=== PATIENT | male | born 1975 | race Hispanic/Latino ===

== ENCOUNTER 2022-05-24 09:46 | Emergency (ER) | payer SELFPAY ==
[2022-05-24 10:34] LABS: Urine Blood Trace-intact (Negative); Urine Glucose Negative (Negative); Urine Protein Negative (Negative)
[2022-05-24 10:53] LABS: Barbiturates NEGATIVE (NEGATIVE); Benzodiazepines NEGATIVE (NEGATIVE); Cocaine NEGATIVE (NEGATIVE); METHAMPHETAM POSITIVE (NEGATIVE); Methadone NEGATIVE (NEGATIVE); Opiates NEGATIVE (NEGATIVE); Phencyclidine NEGATIVE (NEGATIVE); THC Cannibis NEGATIVE (NEGATIVE)
[2022-05-24 12:23] LABS: Absolute Lymphocytes (CBC) 1.2 K/uL (0.7-4.9); Lymphocytes % 20.3 % (15.3-44.8); MCV 94.5 fL (80-100); MPV 8.3 fL (7.6-11.3); RBC Red Blood Cell Count 4.45 M/uL (4.33-5.43)
[2022-05-24 12:31] LABS: Protime INR 1.17
[2022-05-24 12:50] LABS: ALT/SGPT 29 U/L (16-61); AST/SGOT 17 U/L (15-37); Albumin 3.5 g/dL (3.4-5.0); Alkaline Phosphatase 125 U/L (45-117); BUN Blood Urea Nitrogen 21 mg/dL (7-18); Bicarbonate 26 mmol/L (21-32); Bilirubin Total 0.3 mg/dL (0.2-1.0); Glomerular Filtration Rate 83 ml/min (=/>90); Glucose Level 103 mg/dL (74-106); Potassium 4.1 mmol/L (3.5-5.1); Protein, Total 6.8 g/dL (6.4-8.2); Sodium Level 137 mmol/L (136-145)
[2022-05-24 12:51] LABS: Bilirubin Direct < 0.1 mg/dL (0-0.2)
[2022-05-24 13:26] LABS: SARS-CoV-2 Antigen Rapid Res Negative (Negative)
[2022-05-24] MEDS ORDERED: predniSONE 20 MG TAB ONE (15:52)
[2022-05-25] MEDS ORDERED: ACETAMINOPHEN 500 MG TAB ONE (03:29)
--- NOTE | 2022-05-25 16:24 | EKG ---
Test Date: 2022-05-24 Test Time: 10:36:26 [employer]: [employer] MEASUREMENT RESULTS: Intervals: Rate: 81 WI: 158 QRSD: 86 QT: 354 QTc: 411 [place]: P: 52 WI: 158 QRS: 84 T: 59 INTERPRETIVE STATEMENTS: Normal sinus rhythm Normal ECG No previous ECG available for comparison Electronically Signed On 05-25-22 16:20:17 [employer] by Hugo Payton
[2022-05-26 17:23] VITALS: O2SAT 100
[2022-05-26 17:26] VITALS: BP 116/79; TEMP 97.6
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
== END 2022-05-26 15:27 ==
LOC: ER 09:46
DX: R45.851 Suicidal ideations (principal); Z59.00 Homelessness unspecified; Z56.0 Unemployment, unspecified; Z59.1 Inadequate housing; Z20.822 Contact with and (suspected) exposure to COVID-19
CPT/HCPCS: 36415; 80048; 80076; 80307; 81003; 85025; 85610; 85730; 87811; 93005; 99285; G0480; J7512

== ENCOUNTER 2022-11-13 04:12 | Emergency (ER) | payer SELFPAY ==
--- OUTSIDE RECORDS SUMMARY | 2022-11-13 04:17 | XMS REPORT | Continuity of Care Document ---
:1975 Author Organization [facility] t Address [address] [place] [address] [place] [id number] Care Team Providers Name Role Phone [facility], [place] Dept Of Primary Care Physician [phone] Bhupinder Palm Attending Clinician Franki Melvin RN, Melisa Lawrence Attending Clinician Unavailable Winnie Gonzalez LVN Attending Clinician Unavailable Amber Sandoval MA Attending Clinician Unavailable Melisa Key RN Attending Clinician Unavailable BHUPINDER ARIZMENDI Attending Clinician Unavailable Sabrina Olivarez MA Attending Clinician Unavailable Celso Stearns MA Attending Clinician Unavailable SASHA RAMOS Attending Clinician Unavailable KRYSTA HOWELL Attending Clinician Unavailable YULISA INTERIANO Attending Clinician Unavailable [facility] Attending Clinician Unavailable Riddhi Rabago MD Attending Clinician RIDDHI RABAGO Attending Clinician Unavailable Payers Payer Name Policy Type Policy Number Effective Date Expiration Date S ource Problems Condition Condition Condition Status Onset Resolution Last Treating Co mments Source Name Details Category Date Date Treatment Clinician Date Obesity Obesity Disease Active Univers (BMI (BMI 8-11 ity of 30-39.9) 30-39.9) 00:00: [place] 00 Medical Branch Allergies, Adverse Reactions, Alerts Allergy Allergy Status Severity Reaction(s) Onset Inactive Treating Comm ents Source Name Type Date Date Clinician Penicill Propensi Active Other - See U nivers ins ty to comments 1-19 ity of adverse 00:00: [place] reaction 00 Medical s Branch PENICILL Drug Active Other-Cmnt Univ ers INS Class 1-19 ity of 00:00: [place] 00 Medical Branch NO KNOWN Drug Active Univers ALLERGIE Class ity of S [facility] Social History Social Habit Start Date Stop Date Quantity Comments Source History of tobacco Cigarette Smoker University of use [facility] Gender identity Universit y of [facility] Sexual orientation Univer sity [facility] Exposure to 2022-04-24 2022-05-04 Not sure University SARS-CoV-2 (event) 00:00:00 11:45:00 [facility] Alcohol intake 2022-05-04 2022-05-04 Lifetime University of 00:00:00 00:00:00 non-drinker [facility] (finding) Branch Tobacco use and 2022-04-06 2022-04-06 Smokeless Universit y of exposure 00:00:00 00:00:00 tobacco non-user [facility] dical [place] History of Social 2022-04-06 2022-04-06 Univers ity of function 00:00:00 00:00:00 [facility] Sex [birth year] At [birth year] Universit y of 00:00:00 00:00:00 [facility] Smoking Status Start Date Stop Date Source Tobacco smoking consumption Univ ersity of [facility] unknown Branch Smokes tobacco daily 2022-04-06 00:00:00 Univers ity [facility] Medications Ordered Filled Start Stop Current Ordering Indication Dosage Frequency Signature Comments Components Source Medication Medication Date Date Medication? Clinician (SIG) Name Name FRANCINE Yes [id number] 1 po once U nivers [id number] 7-27 daily with it y of -10 mg Tab 00:00: foood [place] [facility] lamiVUDine 2022- No 300mg Take 300 U nivers 300 mg 2-16 02-16 mg by ity of tablet 12:05: 00:00 mouth in [place] 01 :00 the Medical morning. Branch lamiVUDine 2022- No 300mg Take 300 U nivers 300 mg 2-16 02-16 mg by ity of tablet 12:05: 00:00 mouth in [place] 01 :00 the Medical morning. Branch lamiVUDine 2022- No 300mg Take 300 U nivers 300 mg 2-16 02-16 mg by ity of tablet 12:05: 00:00 mouth in [place] 01 :00 the Medical morning. Branch lamiVUDine 2023-0 2023- No 300mg Take 300 U nivers 300 mg 2-16 02-16 mg by ity of tablet 12:05: 00:00 mouth in [place] 01 :00 the Medical morning. Branch darunavir 2023-0 2023- No 800mg Take 800 Un eyal ethanolate 2-16 02-16 mg by ity of (PREZISTA) 12:04: 00:00 mouth in [place] 800 mg 55 :00 the Medical tablet morning. Branch riTONAvir 2023-0 2023- No 100mg Take 100 Un eyal 100 mg 2-16 02-16 mg by ity of tablet 12:04: 00:00 mouth in [place] 55 :00 the Medical morning. Branch tenofovir 2023-0 2023- No 300mg Take 300 Un eyal 300 mg 2-16 02-16 mg by ity of tablet 12:04: 00:00 mouth in [place] 55 :00 the Medical morning. Branch darunavir 2023-0 2023- No 800mg Take 800 Un eyal ethanolate 2-16 02-16 mg by ity of (PREZISTA) 12:04: 00:00 mouth in [place] 800 mg 55 :00 the Medical tablet morning. Branch riTONAvir 2023-0 2023- No 100mg Take 100 Un eyal 100 mg 2-16 02-16 mg by ity of tablet 12:04: 00:00 mouth in [place] 55 :00 the Medical morning. Branch tenofovir 2023-0 2023- No 300mg Take 300 Un eyal 300 mg 2-16 02-16 mg by ity of tablet 12:04: 00:00 mouth in [place] 55 :00 the Medical morning. Branch darunavir 2023-0 2023- No 800mg Take 800 Un eyal ethanolate 2-16 02-16 mg by ity of (PREZISTA) 12:04: 00:00 mouth in [place] 800 mg 55 :00 the Medical tablet morning. Branch riTONAvir 2023-0 2023- No 100mg Take 100 Un eyal 100 mg 2-16 02-16 mg by ity of tablet 12:04: 00:00 mouth in [place] 55 :00 the Medical morning. Branch tenofovir 2023-0 2023- No 300mg Take 300 Un eyal 300 mg 2-16 02-16 mg by ity of tablet 12:04: 00:00 mouth in [place] 55 :00 the Medical morning. Branch darunavir 2023-0 2023- No 800mg Take 800 Un eyal ethanolate 2-16 02-16 mg by ity of (PREZISTA) 12:04: 00:00 mouth [place] 800 mg 55 :00 the Medical tablet morning. Branch riTONAvir 2023-0 2023- No 100mg Take 100 Un eyal 100 mg 2-16 02-16 mg by ity of tablet 12:04: 00:00 mouth in [place] 55 :00 the Medical morning. Branch tenofovir 2023-0 2023- No 300mg Take 300 Un eyal 300 mg 2-16 02-16 mg by ity of tablet 12:04: 00:00 mouth in [place] 55 :00 the Medical morning. Branch darunavir 2023-0 Yes 800mg Take 800 Uni vers ethanolate 1-19 mg by ity of (PREZISTA) 09:40: mouth in [facility] 800 mg 29 the Medical tablet morning. Branch risperiDONE 3-0 Yes 1mg Take 1 mg U nivers (RISPERDAL) 1-19 by mouth ity of 1 mg tablet 09:40: in the [place] [address] morning Medical and 1 mg Branch in the evening. riTONAvir 3-0 Yes 100mg Take 100 Uni vers 100 mg 1-19 mg by ity of tablet 09:40: mouth in [place] [address] the Medical morning. Branch tenofovir 2023-0 Yes 300mg Take 300 Uni vers 300 mg 1-19 mg by ity of tablet 09:40: mouth in [place] [address] the Medical morning. Branch FLUoxetine 2023-0 Yes 20mg Take 20 mg U nivers 20 mg 1-19 by mouth ity of tablet 09:40: in the [place] [address] morning. Medical Branch ibuprofen 2023-0 Yes 600mg Take 600 Uni vers 600 mg 1-19 mg by ity of tablet 09:40: mouth [place] [address] every 6 Medical (six) Branch hours as needed. lamiVUDine 2023-0 Yes 300mg Take 300 Un eyal 300 mg 1-19 mg by ity of tablet 09:40: mouth in [place] [address] the Medical morning. Branch darunavir 2023-0 Yes 800mg Take 800 Uni vers ethanolate 1-19 mg by ity of (PREZISTA) 09:40: mouth in [facility] as 800 mg 29 the Medical tablet morning. Branch risperiDONE 2023-0 Yes 1mg Take 1 mg U nivers (RISPERDAL) 1-19 by mouth ity of 1 mg tablet 09:40: in the [place] [address] morning Medical and 1 mg Branch in the evening. riTONAvir 2023-0 Yes 100mg Take 100 Uni vers 100 mg 1-19 mg by ity of tablet 09:40: mouth in [place] [address] the Medical morning. Branch tenofovir 2023-0 Yes 300mg Take 300 Uni vers 300 mg 1-19 mg by ity of tablet 09:40: mouth in [place] [address] the Medical morning. Branch FLUoxetine 2023-0 Yes 20mg Take 20 mg U nivers 20 mg 1-19 by mouth ity of tablet 09:40: in the [place] [address] morning. Medical Branch ibuprofen 2023-0 Yes 600mg Take 600 Uni vers 600 mg 1-19 mg by ity of tablet 09:40: mouth [place] [address] every 6 Medical (six) Branch hours as needed. lamiVUDine 2023-0 Yes 300mg Take 300 Un eyal 300 mg 1-19 mg by ity of tablet 09:40: mouth in [place] [address] the Medical morning. Branch darunavir 2023-0 Yes 800mg Take 800 Uni vers ethanolate 1-19 mg by ity of (PREZISTA) 09:40: mouth in [facility] as 800 mg 29 the Medical tablet morning. Branch risperiDONE 2023-0 Yes 1mg Take 1 mg U nivers (RISPERDAL) 1-19 by mouth ity of 1 mg tablet 09:40: in the [place] [address] morning Medical and 1 mg Branch in the evening. riTONAvir 2023-0 Yes 100mg Take 100 Uni vers 100 mg 1-19 mg by ity of tablet 09:40: mouth in [place] [address] the Medical morning. Branch tenofovir 2023-0 Yes 300mg Take 300 Uni vers 300 mg 1-19 mg by ity of tablet 09:40: mouth in [place] [address] the Medical morning. Branch FLUoxetine 2023-0 Yes 20mg Take 20 mg U nivers 20 mg 1-19 by mouth ity of tablet 09:40: in the [place] [address] morning. Medical Branch ibuprofen 2023-0 Yes 600mg Take 600 Uni vers 600 mg 1-19 mg by ity of tablet 09:40: mouth [place] [address] every 6 Medical (six) Branch hours as needed. lamiVUDine 2023-0 Yes 300mg Take 300 Un eyal 300 mg 1-19 mg by ity of tablet 09:40: mouth in [place] [address] the Medical morning. Branch darunavir 2023-0 Yes 800mg Take 800 Uni vers ethanolate 1-19 mg by ity of (PREZISTA) 09:40: mouth in [facility] as 800 mg 29 the Medical tablet morning. Branch risperiDONE 2023-0 Yes 1mg Take 1 mg U nivers (RISPERDAL) 1-19 by mouth ity of 1 mg tablet 09:40: in the [place] [address] morning Medical and 1 mg Branch in the evening. riTONAvir 2023-0 Yes 100mg Take 100 Uni vers 100 mg 1-19 mg by ity of tablet 09:40: mouth in [place] [address] the Medical morning. Branch tenofovir 2023-0 Yes 300mg Take 300 Uni vers 300 mg 1-19 mg by ity of tablet 09:40: mouth in [place] [address] the Medical morning. Branch FLUoxetine 2023-0 Yes 20mg Take 20 mg U nivers 20 mg 1-19 by mouth ity of tablet 09:40: in the [place] [address] morning. Medical Branch ibuprofen 2023-0 Yes 600mg Take 600 Uni vers 600 mg 1-19 mg by ity of tablet 09:40: mouth [place] [address] every 6 Medical (six) Branch hours as needed. lamiVUDine 2023-0 Yes 300mg Take 300 Un yeal 300 mg 1-19 mg by ity of tablet 09:40: mouth in [place] [address] the Medical morning. Branch darunavir 2023-0 Yes 800mg Take 800 Uni vers ethanolate 1-19 mg by ity of (PREZISTA) 09:40: mouth in [facility] as 800 mg 29 the Medical tablet morning. Branch risperiDONE 2023-0 Yes 1mg Take 1 mg U nivers (RISPERDAL) 1-19 by mouth ity of 1 mg tablet 09:40: in the [place] [address] morning Medical and 1 mg Branch in the evening. riTONAvir 2023-0 Yes 100mg Take 100 Uni vers 100 mg 1-19 mg by ity of tablet 09:40: mouth in [place] [address] the Medical morning. Branch tenofovir 2023-0 Yes 300mg Take 300 Uni vers 300 mg 1-19 mg by ity of tablet 09:40: mouth in [place] [address] the Medical morning. Branch FLUoxetine 2023-0 Yes 20mg Take 20 mg U nivers 20 mg 1-19 by mouth ity of tablet 09:40: in the [place] [address] morning. Medical Branch ibuprofen 2023-0 Yes 600mg Take 600 Uni vers 600 mg 1-19 mg by ity of tablet 09:40: mouth [place] [address] every 6 Medical (six) Branch hours as needed. lamiVUDine 2023-0 Yes 300mg Take 300 Un eyal 300 mg 1-19 mg by ity of tablet 09:40: mouth in [place] [address] the Medical morning. Branch darunavir 2023-0 Yes 800mg Take 800 Uni vers ethanolate 1-19 mg by ity of (PREZISTA) 09:40: mouth in [facility] as 800 mg 29 the Medical tablet morning. Branch risperiDONE 2023-0 Yes 1mg Take 1 mg U nivers (RISPERDAL) 1-19 by mouth ity of 1 mg tablet 09:40: in the [place] [address] morning Medical and 1 mg Branch in the evening. riTONAvir 2023-0 Yes 100mg Take 100 Uni vers 100 mg 1-19 mg by ity of tablet 09:40: mouth in [place] [address] the Medical morning. Branch tenofovir 2023-0 Yes 300mg Take 300 Uni vers 300 mg 1-19 mg by ity of tablet 09:40: mouth in [place] [address] the Medical morning. Branch FLUoxetine 2023-0 Yes 20mg Take 20 mg U nivers 20 mg 1-19 by mouth ity of tablet 09:40: in the [place] [address] morning. Medical Branch ibuprofen 2023-0 Yes 600mg Take 600 Uni vers 600 mg 1-19 mg by ity of tablet 09:40: mouth [place] [address] every 6 Medical (six) Branch hours as needed. lamiVUDine 2023-0 Yes 300mg Take 300 Un eyal 300 mg 1-19 mg by ity of tablet 09:40: mouth in [place] [address] the Medical morning. Branch darunavir 2023-0 Yes 800mg Take 800 Uni vers ethanolate 1-19 mg by ity of (PREZISTA) 09:40: mouth in [facility] as 800 mg 29 the Medical tablet morning. Branch risperiDONE 2023-0 Yes 1mg Take 1 mg U nivers (RISPERDAL) 1-19 by mouth ity of 1 mg tablet 09:40: in the [place] [address] morning Medical and 1 mg Branch in the evening. riTONAvir 2023-0 Yes 100mg Take 100 Uni vers 100 mg 1-19 mg by ity of tablet 09:40: mouth in [place] [address] the Medical morning. Branch tenofovir 2023-0 Yes 300mg Take 300 Uni vers 300 mg 1-19 mg by ity of tablet 09:40: mouth in [place] [address] the Medical morning. Branch FLUoxetine 2023-0 Yes 20mg Take 20 mg U nivers 20 mg 1-19 by mouth ity of tablet 09:40: in the [place] [address] morning. Medical Branch ibuprofen 2023-0 Yes 600mg Take 600 Uni vers 600 mg 1-19 mg by ity of tablet 09:40: mouth [place] [address] every 6 Medical (six) Branch hours as needed. lamiVUDine 2023-0 Yes 300mg Take 300 Un eyal 300 mg 1-19 mg by ity of tablet 09:40: mouth in [place] [address] the Medical morning. Branch darunavir 2023-0 Yes 800mg Take 800 Uni vers ethanolate 1-19 mg by ity of (PREZISTA) 09:40: mouth in [facility] 800 mg 29 the Medical tablet morning. Branch risperiDONE 2023-0 Yes 1mg Take 1 mg U nivers (RISPERDAL) 1-19 by mouth ity of 1 mg tablet 09:40: in the [place] [address] morning Medical and 1 mg Branch in the evening. riTONAvir 2023-0 Yes 100mg Take 100 Uni vers 100 mg 1-19 mg by ity of tablet 09:40: mouth in [place] [address] the Medical morning. Branch tenofovir 2023-0 Yes 300mg Take 300 Uni vers 300 mg 1-19 mg by ity of tablet 09:40: mouth in [place] [address] the Medical morning. Branch FLUoxetine 2023-0 Yes 20mg Take 20 mg U nivers 20 mg 1-19 by mouth ity of tablet 09:40: in the [place] [address] morning. Medical Branch ibuprofen 2023-0 Yes 600mg Take 600 Uni vers 600 mg 1-19 mg by ity of tablet 09:40: mouth [place] [address] every 6 Medical (six) Branch hours as needed. lamiVUDine 2023-0 Yes 300mg Take 300 Un eyal 300 mg 1-19 mg by ity of tablet 09:40: mouth in [place] [address] the Medical morning. Branch darunavir 2023-0 Yes 800mg Take 800 Uni vers ethanolate 1-19 mg by ity of (PREZISTA) 09:40: mouth in [facility] as 800 mg 29 the Medical tablet morning. Branch risperiDONE 2023-0 Yes 1mg Take 1 mg U nivers (RISPERDAL) 1-19 by mouth ity of 1 mg tablet 09:40: in the [place] [address] morning Medical and 1 mg Branch in the evening. riTONAvir 2023-0 Yes 100mg Take 100 Uni vers 100 mg 1-19 mg by ity of tablet 09:40: mouth in [place] [address] the Medical morning. Branch tenofovir 2023-0 Yes 300mg Take 300 Uni vers 300 mg 1-19 mg by ity of tablet 09:40: mouth in [place] [address] the Medical morning. Branch FLUoxetine 2023-0 Yes 20mg Take 20 mg U nivers 20 mg 1-19 by mouth ity of tablet 09:40: in the [place] [address] morning. Medical Branch ibuprofen 2023-0 Yes 600mg Take 600 Uni vers 600 mg 1-19 mg by ity of tablet 09:40: mouth [place] [address] every 6 Medical (six) Branch hours as needed. lamiVUDine 2023-0 Yes 300mg Take 300 Un eyal 300 mg 1-19 mg by ity of tablet 09:40: mouth in [place] [address] the Medical morning. Branch darunavir 2023-0 Yes 800mg Take 800 Uni vers ethanolate 1-19 mg by ity of (PREZISTA) 09:40: mouth in [facility] as 800 mg 29 the Medical tablet morning. Branch risperiDONE 2023-0 Yes 1mg Take 1 mg U nivers (RISPERDAL) 1-19 by mouth ity of 1 mg tablet 09:40: in the [place] [address] morning Medical and 1 mg Branch in the evening. riTONAvir 2023-0 Yes 100mg Take 100 Uni vers 100 mg 1-19 mg by ity of tablet 09:40: mouth in [place] [address] the Medical morning. Branch tenofovir 2023-0 Yes 300mg Take 300 Uni vers 300 mg 1-19 mg by ity of tablet 09:40: mouth in [place] [address] the Medical morning. Branch FLUoxetine 2023-0 Yes 20mg Take 20 mg U nivers 20 mg 1-19 by mouth ity of tablet 09:40: in the [place] [address] morning. Medical Branch ibuprofen 2023-0 Yes 600mg Take 600 Uni vers 600 mg 1-19 mg by ity of tablet 09:40: mouth [place] [address] every 6 Medical (six) Branch hours as needed. risperiDONE 2023-0 Yes 1mg Take 1 mg U nivers (RISPERDAL) 1-19 by mouth ity of 1 mg tablet 09:40: in the [facility] morning Medical and 1 mg Branch in the evening. FLUoxetine 2023-0 Yes 20mg Take 20 mg U nivers 20 mg 1-19 by mouth ity of tablet 09:40: in the [place] [address] morning. Medical Branch ibuprofen 2023-0 Yes 600mg Take 600 Uni vers 600 mg 1-19 mg by ity of tablet 09:40: mouth [place] [address] every 6 Medical (six) Branch hours as needed. FLUoxetine 2023-0 Yes 20mg Take 20 mg U nivers 20 mg 1-19 by mouth ity of tablet 09:40: in the [place] [address] morning. Medical Branch ibuprofen 2023-0 Yes 600mg Take 600 Uni vers 600 mg 1-19 mg by ity of tablet 09:40: mouth [place] [address] every 6 Medical (six) Branch hours as needed. risperiDONE 2023-0 Yes 1mg Take 1 mg U nivers (RISPERDAL) 1-19 by mouth ity of 1 mg tablet 09:40: in the [facility] morning Medical and 1 mg Branch in the evening. lamiVUDine 2023-0 Yes 300mg Take 300 Un eyal 300 mg 1-19 mg by ity of tablet 09:40: mouth in [place] [address] the Medical morning. Branch FLUoxetine 2023-0 Yes 20mg Take 20 mg U nivers 20 mg 1-19 by mouth ity of tablet 09:40: in the [place] [address] morning. Medical Branch ibuprofen 2023-0 Yes 600mg Take 600 Uni vers 600 mg 1-19 mg by ity of tablet 09:40: mouth [place] [address] every 6 Medical (six) Branch hours as needed. risperiDONE 2023-0 Yes 1mg Take 1 mg U nivers (RISPERDAL) 1-19 by mouth ity of 1 mg tablet 09:40: in the [facility] morning Medical and 1 mg Branch in the evening. darunavir 2023-0 Yes 800mg Take 800 Uni vers ethanolate 1-19 mg by ity of (PREZISTA) 09:40: mouth in [place] as 800 mg 29 the Medical tablet morning. Branch FLUoxetine 2023-0 Yes 20mg Take 20 mg U nivers 20 mg 1-19 by mouth ity of tablet 09:40: in the [place] [address] morning. Medical Branch ibuprofen 2023-0 Yes 600mg Take 600 Uni vers 600 mg 1-19 mg by ity of tablet 09:40: mouth [place] [address] every 6 Medical (six) Branch hours as needed. risperiDONE 2023-0 Yes 1mg Take 1 mg U nivers (RISPERDAL) 1-19 by mouth ity of 1 mg tablet 09:40: in the [facility] morning Medical and 1 mg Branch in the evening. FLUoxetine 2023-0 Yes 20mg Take 20 mg U nivers 20 mg 1-19 by mouth ity of tablet 09:40: in the [place] [address] morning. Medical Branch ibuprofen 2023-0 Yes 600mg Take 600 Uni vers 600 mg 1-19 mg by ity of tablet 09:40: mouth [place] [address] every 6 Medical (six) Branch hours as needed. risperiDONE 2023-0 Yes 1mg Take 1 mg U nivers (RISPERDAL) 1-19 by mouth ity of 1 mg tablet 09:40: in the [facility] morning Medical and 1 mg Branch in the evening. risperiDONE 2023-0 Yes 1mg Take 1 mg U nivers (RISPERDAL) 1-19 by mouth ity of 1 mg tablet 09:40: in the [place] [address] morning Medical and 1 mg Branch in the evening. FLUoxetine 2023-0 Yes 20mg Take 20 mg U nivers 20 mg 1-19 by mouth ity of tablet 09:40: in the [place] [address] morning. Medical Branch ibuprofen 2023-0 Yes 600mg Take 600 Uni vers 600 mg 1-19 mg by ity of tablet 09:40: mouth [place] [address] every 6 Medical (six) Branch hours as needed. risperiDONE 2023-0 Yes 1mg Take 1 mg U nivers (RISPERDAL) 1-19 by mouth ity of 1 mg tablet 09:40: in the [place] [address] morning Medical and 1 mg Branch in the evening. riTONAvir 2023-0 Yes 100mg Take 100 Uni vers 100 mg 1-19 mg by ity of tablet 09:40: mouth in [place] [address] the Medical morning. Branch FLUoxetine 2023-0 Yes 20mg Take 20 mg U nivers 20 mg 1-19 by mouth ity of tablet 09:40: in the [place] [address] morning. Medical Branch ibuprofen 2023-0 Yes 600mg Take 600 Uni vers 600 mg 1-19 mg by ity of tablet 09:40: mouth [place] [address] every 6 Medical (six) Branch hours as needed. risperiDONE 2023-0 Yes 1mg Take 1 mg U nivers (RISPERDAL) 1-19 by mouth ity of 1 mg tablet 09:40: in the [place] [address] morning Medical and 1 mg Branch in the evening. FLUoxetine 2023-0 Yes 20mg Take 20 mg U nivers 20 mg 1-19 by mouth ity of tablet 09:40: in the [place] [address] morning. Medical Branch ibuprofen 2023-0 Yes 600mg Take 600 Uni vers 600 mg 1-19 mg by ity of tablet 09:40: mouth [place] [address] every 6 Medical (six) Branch hours as needed. risperiDONE 2023-0 Yes 1mg Take 1 mg U nivers (RISPERDAL) 1-19 by mouth ity of 1 mg tablet 09:40: in the [place] [address] morning Medical and 1 mg Branch in the evening. tenofovir 2023-0 Yes 300mg Take 300 Uni vers 300 mg 1-19 mg by ity of tablet 09:40: mouth in [place] [address] the Medical morning. Branch FLUoxetine 2023-0 Yes 20mg Take 20 mg U nivers 20 mg 1-19 by mouth ity of tablet 09:40: in the [place] [address] morning. Medical Branch ibuprofen 2023-0 Yes 600mg Take 600 Uni vers 600 mg 1-19 mg by ity of tablet 09:40: mouth [place] [address] every 6 Medical (six) Branch hours as needed. risperiDONE 2023-0 Yes 1mg Take 1 mg U nivers (RISPERDAL) 1-19 by mouth ity of 1 mg tablet 09:40: in the [place] [address] morning Medical and 1 mg Branch in the evening. FLUoxetine 2023-0 Yes 20mg Take 20 mg U nivers 20 mg 1-19 by mouth ity of tablet 09:40: in the [place] [address] morning. Medical Branch ibuprofen 2023-0 Yes 600mg Take 600 Uni vers 600 mg 1-19 mg by ity of tablet 09:40: mouth [place] [address] every 6 Medical (six) Branch hours as needed. risperiDONE 2023-0 Yes 1mg Take 1 mg U nivers (RISPERDAL) 1-19 by mouth ity of 1 mg tablet 09:40: in the [facility] morning Medical and 1 mg Branch in the evening. FLUoxetine 2023-0 Yes 20mg Take 20 mg U nivers 20 mg 1-19 by mouth ity of tablet 09:40: in the [place] [address] morning. Medical Branch ibuprofen 2023-0 Yes 600mg Take 600 Uni vers 600 mg 1-19 mg by ity of tablet 09:40: mouth [place] [address] every 6 Medical (six) Branch hours as needed. risperiDONE 2023-0 Yes 1mg Take 1 mg U nivers (RISPERDAL) 1-19 by mouth ity of 1 mg tablet 09:40: in the [facility] morning Medical and 1 mg Branch in the evening. FLUoxetine 2023-0 Yes 20mg Take 20 mg U nivers 20 mg 1-19 by mouth ity of tablet 09:40: in the [place] [address] morning. Medical Branch ibuprofen 2023-0 Yes 600mg Take 600 Uni vers 600 mg 1-19 mg by ity of tablet 09:40: mouth [place] [address] every 6 Medical (six) Branch hours as needed. risperiDONE 2023-0 Yes 1mg Take 1 mg U nivers (RISPERDAL) 1-19 by mouth ity of 1 mg tablet 09:40: in the [facility] morning Medical and 1 mg Branch in the evening. FLUoxetine 2023-0 Yes 20mg Take 20 mg U nivers 20 mg 1-19 by mouth ity of tablet 09:40: in the [place] [address] morning. Medical Branch ibuprofen 2023-0 Yes 600mg Take 600 Uni vers 600 mg 1-19 mg by ity of tablet 09:40: mouth [place] [address] every 6 Medical (six) Branch hours as needed. risperiDONE 2023-0 Yes 1mg Take 1 mg U nivers (RISPERDAL) 1-19 by mouth ity of 1 mg tablet 09:40: in the [facility] morning Medical and 1 mg Branch in the evening. FLUoxetine 2023-0 Yes 20mg Take 20 mg U nivers 20 mg 1-19 by mouth ity of tablet 09:40: in the [place] [address] morning. Medical Branch ibuprofen 2023-0 Yes 600mg Take 600 Uni vers 600 mg 1-19 mg by ity of tablet 09:40: mouth [place] [place] [address] every 6 Medical (six) Branch hours as needed. risperiDONE 2023-0 Yes 1mg Take 1 mg U nivers (RISPERDAL) 1-19 by mouth ity of 1 mg tablet 09:40: in the [place] [address] morning Medical and 1 mg Branch in the evening. FLUoxetine 2023-0 Yes 20mg Take 20 mg U nivers 20 mg 1-19 by mouth ity of tablet 09:40: in the [place] [address] morning. Medical Branch ibuprofen 2023-0 Yes 600mg Take 600 Uni vers 600 mg 1-19 mg by ity of tablet 09:40: mouth [place] [address] every 6 Medical (six) Branch hours as needed. risperiDONE 2023-0 Yes 1mg Take 1 mg U nivers (RISPERDAL) 1-19 by mouth ity of 1 mg tablet 09:40: in the [place] [address] morning Medical and 1 mg Branch in the evening. FLUoxetine 2023-0 Yes 20mg Take 20 mg U nivers 20 mg 1-19 by mouth ity of tablet 09:40: in the [place] [address] morning. Medical Branch FLUoxetine 2023-0 Yes 20mg Take 20 mg U nivers 20 mg 1-19 by mouth ity of tablet 09:40: in the [place] [address] morning. Medical Branch ibuprofen 2023-0 Yes 600mg Take 600 Uni vers 600 mg 1-19 mg by ity of tablet 09:40: mouth [place] [address] every 6 Medical (six) Branch hours as needed. risperiDONE 2023-0 Yes 1mg Take 1 mg U nivers (RISPERDAL) 1-19 by mouth ity of 1 mg tablet 09:40: in the [place] [address] morning Medical and 1 mg Branch in the evening. ibuprofen 2023-0 Yes 600mg Take 600 Uni vers 600 mg 1-19 mg by ity of tablet 09:40: mouth [place] [address] every 6 Medical (six) Branch hours as needed. FLUoxetine 2023-0 Yes 20mg Take 20 mg U nivers 20 mg 1-19 by mouth ity of tablet 09:40: in the [place] [address] morning. Medical Branch ibuprofen 2023-0 Yes 600mg Take 600 Uni vers 600 mg 1-19 mg by ity of tablet 09:40: mouth [place] [address] every 6 Medical (six) Branch hours as needed. risperiDONE 2023-0 Yes 1mg Take 1 mg U nivers (RISPERDAL) 1-19 by mouth ity of 1 mg tablet 09:40: in the [place] [address] morning Medical and 1 mg Branch in the evening. FLUoxetine 2023-0 Yes 20mg Take 20 mg U nivers 20 mg 1-19 by mouth ity of tablet 09:40: in the [place] [address] morning. Medical Branch ibuprofen 2023-0 Yes 600mg Take 600 Uni vers 600 mg 1-19 mg by ity of tablet 09:40: mouth [place] [address] every 6 Medical (six) Branch hours as needed. lamiVUDine 2023-0 Yes 300mg Take 300 Un eyal 300 mg 1-19 mg by ity of tablet 09:40: mouth in [place] [address] the Medical morning. Branch risperiDONE 2023-0 Yes 1mg Take 1 mg U nivers (RISPERDAL) 1-19 by mouth ity of 1 mg tablet 09:40: in the [place] [address] morning Medical and 1 mg Branch in the evening. FLUoxetine 2023-0 Yes 20mg Take 20 mg U nivers 20 mg 1-19 by mouth ity of tablet 09:40: in the [place] [address] morning. Medical Branch ibuprofen 2023-0 Yes 600mg Take 600 Uni vers 600 mg 1-19 mg by ity of tablet 09:40: mouth [place] [address] every 6 Medical (six) Branch hours as needed. risperiDONE 2023-0 Yes 1mg Take 1 mg U nivers (RISPERDAL) 1-19 by mouth ity of 1 mg tablet 09:40: in the [place] [address] morning Medical and 1 mg Branch in the evening. darunavir 2023-0 Yes 800mg Take 800 Uni vers ethanolate 1-19 mg by ity of (PREZISTA) 09:40: mouth in [facility] 800 mg 29 the Medical tablet morning. Branch FLUoxetine 2023-0 Yes 20mg Take 20 mg U nivers 20 mg 1-19 by mouth ity of tablet 09:40: in the [place] [address] morning. Medical Branch ibuprofen 2023-0 Yes 600mg Take 600 Uni vers 600 mg 1-19 mg by ity of tablet 09:40: mouth [place] [address] every 6 Medical (six) Branch hours as needed. risperiDONE 2023-0 Yes 1mg Take 1 mg U nivers (RISPERDAL) 1-19 by mouth ity of 1 mg tablet 09:40: in the [place] [address] morning Medical and 1 mg Branch in the evening. FLUoxetine 2023-0 Yes 20mg Take 20 mg U nivers 20 mg 1-19 by mouth ity of tablet 09:40: in the [place] [address] morning. Medical Branch risperiDONE 2023-0 Yes 1mg Take 1 mg U nivers (RISPERDAL) 1-19 by mouth ity of 1 mg tablet 09:40: in the [place] [address] morning Medical and 1 mg Branch in the evening. ibuprofen 2023-0 Yes 600mg Take 600 Uni vers 600 mg 1-19 mg by ity of tablet 09:40: mouth [place] [address] every 6 Medical (six) Branch hours as needed. risperiDONE 2023-0 Yes 1mg Take 1 mg U nivers (RISPERDAL) 1-19 by mouth ity of 1 mg tablet 09:40: in the [place] [address] morning Medical and 1 mg Branch in the evening. FLUoxetine 2023-0 Yes 20mg Take 20 mg U nivers 20 mg 1-19 by mouth ity of tablet 09:40: in the [place] [address] morning. Medical Branch ibuprofen 2023-0 Yes 600mg Take 600 Uni vers 600 mg 1-19 mg by ity of tablet 09:40: mouth [place] [address] every 6 Medical (six) Branch hours as needed. risperiDONE 2023-0 Yes 1mg Take 1 mg U nivers (RISPERDAL) 1-19 by mouth ity of 1 mg tablet 09:40: in the [place] [address] morning Medical and 1 mg Branch in the evening. riTONAvir 2023-0 Yes 100mg Take 100 Uni vers 100 mg 1-19 mg by ity of tablet 09:40: mouth in [place] [address] the Medical morning. Branch FLUoxetine 2023-0 Yes 20mg Take 20 mg U nivers 20 mg 1-19 by mouth ity of tablet 09:40: in the [place] [address] morning. Medical Branch ibuprofen 2023-0 Yes 600mg Take 600 Uni vers 600 mg 1-19 mg by ity of tablet 09:40: mouth [place] [address] every 6 Medical (six) Branch hours as needed. risperiDONE 2023-0 Yes 1mg Take 1 mg U nivers (RISPERDAL) 1-19 by mouth ity of 1 mg tablet 09:40: in the [place] [address] morning Medical and 1 mg Branch in the evening. tenofovir 2023-0 Yes 300mg Take 300 Uni vers 300 mg 1-19 mg by ity of tablet 09:40: mouth in [place] [address] the Medical morning. Branch FLUoxetine 2023-0 Yes 20mg Take 20 mg U nivers 20 mg 1-19 by mouth ity of tablet 09:40: in the [place] [address] morning. Medical Branch ibuprofen 2023-0 Yes 600mg Take 600 Uni vers 600 mg 1-19 mg by ity of tablet 09:40: mouth [place] [address] every 6 Medical (six) Branch hours as needed. risperiDONE 2023-0 Yes 1mg Take 1 mg U nivers (RISPERDAL) 1-19 by mouth ity of 1 mg tablet 09:40: in the [facility] morning Medical and 1 mg Branch in the evening. FLUoxetine 2023-0 Yes 20mg Take 20 mg U nivers 20 mg 1-19 by mouth ity of tablet 09:40: in the [place] [address] morning. Medical Branch ibuprofen 2023-0 Yes 600mg Take 600 Uni vers 600 mg 1-19 mg by ity of tablet 09:40: mouth [place] [address] every 6 Medical (six) Branch hours as needed. risperiDONE 2023-0 Yes 1mg Take 1 mg U nivers (RISPERDAL) 1-19 by mouth ity of 1 mg tablet 09:40: in the [facility] morning Medical and 1 mg Branch in the evening. FLUoxetine 2023-0 Yes 20mg Take 20 mg U nivers 20 mg 1-19 by mouth ity of tablet 09:40: in the [place] [address] morning. Medical Branch ibuprofen 2023-0 Yes 600mg Take 600 Uni vers 600 mg 1-19 mg by ity of tablet 09:40: mouth [place] [address] every 6 Medical (six) Branch hours as needed. risperiDONE 2023-0 Yes 1mg Take 1 mg U nivers (RISPERDAL) 1-19 by mouth ity of 1 mg tablet 09:40: in the [facility] morning Medical and 1 mg Branch in the evening. FLUoxetine 2023-0 Yes 20mg Take 20 mg U nivers 20 mg 1-19 by mouth ity of tablet 09:40: in the [place] [address] morning. Medical Branch ibuprofen 2023-0 Yes 600mg Take 600 Uni vers 600 mg 1-19 mg by ity of tablet 09:40: mouth [place] [address] every 6 Medical (six) Branch hours as needed. risperiDONE 2023-0 Yes 1mg Take 1 mg U nivers (RISPERDAL) 1-19 by mouth ity of 1 mg tablet 09:40: in the [place] [address] morning Medical and 1 mg Branch in the evening. FLUoxetine 2023-0 Yes 20mg Take 20 mg U nivers 20 mg 1-19 by mouth ity of tablet 09:40: in the [place] [address] morning. Medical Branch ibuprofen 2023-0 Yes 600mg Take 600 Uni vers 600 mg 1-19 mg by ity of tablet 09:40: mouth [place] [address] every 6 Medical (six) Branch hours as needed. risperiDONE 2023-0 Yes 1mg Take 1 mg U nivers (RISPERDAL) 1-19 by mouth ity of 1 mg tablet 09:40: in the [place] [address] morning Medical and 1 mg Branch in the evening. FLUoxetine 2023-0 Yes 20mg Take 20 mg U nivers 20 mg 1-19 by mouth ity of tablet 09:40: in the [place] [address] morning. Medical Branch ibuprofen 2023-0 Yes 600mg Take 600 Uni vers 600 mg 1-19 mg by ity of tablet 09:40: mouth [place] [address] every 6 Medical (six) Branch hours as needed. risperiDONE 2023-0 Yes 1mg Take 1 mg U nivers (RISPERDAL) 1-19 by mouth ity of 1 mg tablet 09:40: in the [place] [address] morning Medical and 1 mg Branch in the evening. FLUoxetine 2023-0 Yes 20mg Take 20 mg U nivers 20 mg 1-19 by mouth ity of tablet 09:40: in the [place] [address] morning. Medical Branch ibuprofen 2023-0 Yes 600mg Take 600 Uni vers 600 mg 1-19 mg by ity of tablet 09:40: mouth [place] [address] every 6 Medical (six) Branch hours as needed. risperiDONE 2023-0 Yes 1mg Take 1 mg U nivers (RISPERDAL) 1-19 by mouth ity of 1 mg tablet 09:40: in the [place] [address] morning Medical and 1 mg Branch in the evening. FLUoxetine 2023-0 Yes 20mg Take 20 mg U nivers 20 mg 1-19 by mouth ity of tablet 09:40: in the [place] [address] morning. Medical Branch ibuprofen 2023-0 Yes 600mg Take 600 Uni vers 600 mg 1-19 mg by ity of tablet 09:40: mouth [place] [address] every 6 Medical (six) Branch hours as needed. FLUoxetine 2023-0 Yes 20mg Take 20 mg U nivers 20 mg 1-19 by mouth ity of tablet 09:40: in the [place] [address] morning. Medical Branch risperiDONE 2023-0 Yes 1mg Take 1 mg U nivers (RISPERDAL) 1-19 by mouth ity of 1 mg tablet 09:40: in the [place] [address] morning Medical and 1 mg Branch in the evening. FLUoxetine 2023-0 Yes 20mg Take 20 mg U nivers 20 mg 1-19 by mouth ity of tablet 09:40: in the [place] [address] morning. Medical Branch ibuprofen 2023-0 Yes 600mg Take 600 Uni vers 600 mg 1-19 mg by ity of tablet 09:40: mouth [place] [address] every 6 Medical (six) Branch hours as needed. risperiDONE 2023-0 Yes 1mg Take 1 mg U nivers (RISPERDAL) 1-19 by mouth ity of 1 mg tablet 09:40: in the [place] [address] morning Medical and 1 mg Branch in the evening. ibuprofen 2023-0 Yes 600mg Take 600 Uni vers 600 mg 1-19 mg by ity of tablet 09:40: mouth [place] [address] every 6 Medical (six) Branch hours as needed. FLUoxetine 2023-0 Yes 20mg Take 20 mg U nivers 20 mg 1-19 by mouth ity of tablet 09:40: in the [place] [address] morning. Medical Branch ibuprofen 2023-0 Yes 600mg Take 600 Uni vers 600 mg 1-19 mg by ity of tablet 09:40: mouth [place] [address] every 6 Medical (six) Branch hours as needed. risperiDONE 2023-0 Yes 1mg Take 1 mg U nivers (RISPERDAL) 1-19 by mouth ity of 1 mg tablet 09:40: in the [place] [address] morning Medical and 1 mg Branch in the evening. FLUoxetine 2023-0 Yes 20mg Take 20 mg U nivers 20 mg 1-19 by mouth ity of tablet 09:40: in the [place] [address] morning. Medical Branch lamiVUDine 2023-0 Yes 300mg Take 300 Un eyal 300 mg 1-19 mg by ity of tablet 09:40: mouth in [place] [address] the Medical morning. Branch ibuprofen 2023-0 Yes 600mg Take 600 Uni vers 600 mg 1-19 mg by ity of tablet 09:40: mouth [place] [address] every 6 Medical (six) Branch hours as needed. risperiDONE 2023-0 Yes 1mg Take 1 mg U nivers (RISPERDAL) 1-19 by mouth ity of 1 mg tablet 09:40: in the [place] [address] morning Medical and 1 mg Branch in the evening. FLUoxetine 2023-0 Yes 20mg Take 20 mg U nivers 20 mg 1-19 by mouth ity of tablet 09:40: in the [place] [address] morning. Medical Branch ibuprofen 2023-0 Yes 600mg Take 600 Uni vers 600 mg 1-19 mg by ity of tablet 09:40: mouth [place] [address] every 6 Medical (six) Branch hours as needed. risperiDONE 2023-0 Yes 1mg Take 1 mg U nivers (RISPERDAL) 1-19 by mouth ity of 1 mg tablet 09:40: in the [place] [address] morning Medical and 1 mg Branch in the evening. darunavir 2023-0 Yes 800mg Take 800 Uni vers ethanolate 1-19 mg by ity of (PREZISTA) 09:40: mouth in [facility] 800 mg 29 the Medical tablet morning. Branch FLUoxetine 2023-0 Yes 20mg Take 20 mg U nivers 20 mg 1-19 by mouth ity of tablet 09:40: in the [place] [address] morning. Medical Branch ibuprofen 2023-0 Yes 600mg Take 600 Uni vers 600 mg 1-19 mg by ity of tablet 09:40: mouth [place] [address] every 6 Medical (six) Branch hours as needed. risperiDONE 2023-0 Yes 1mg Take 1 mg U nivers (RISPERDAL) 1-19 by mouth ity of 1 mg tablet 09:40: in the [place] [address] morning Medical and 1 mg Branch in the evening. risperiDONE 2023-0 Yes 1mg Take 1 mg U nivers (RISPERDAL) 1-19 by mouth ity of 1 mg tablet 09:40: in the [place] [address] morning Medical and 1 mg Branch in the evening. FLUoxetine 2023-0 Yes 20mg Take 20 mg U nivers 20 mg 1-19 by mouth ity of tablet 09:40: in the [place] [address] morning. Medical Branch ibuprofen 2023-0 Yes 600mg Take 600 Uni vers 600 mg 1-19 mg by ity of tablet 09:40: mouth [place] [address] every 6 Medical (six) Branch hours as needed. risperiDONE 2023-0 Yes 1mg Take 1 mg U nivers (RISPERDAL) 1-19 by mouth ity of 1 mg tablet 09:40: in the [place] [address] morning Medical and 1 mg Branch in the evening. riTONAvir 2023-0 Yes 100mg Take 100 Uni vers 100 mg 1-19 mg by ity of tablet 09:40: mouth in [place] [address] the Medical morning. Branch FLUoxetine 2023-0 Yes 20mg Take 20 mg U nivers 20 mg 1-19 by mouth ity of tablet 09:40: in the [place] [address] morning. Medical Branch ibuprofen 2023-0 Yes 600mg Take 600 Uni vers 600 mg 1-19 mg by ity of tablet 09:40: mouth [place] [address] every 6 Medical (six) Branch hours as needed. risperiDONE 2023-0 Yes 1mg Take 1 mg U nivers (RISPERDAL) 1-19 by mouth ity of 1 mg tablet 09:40: in the [place] [address] morning Medical and 1 mg Branch in the evening. FLUoxetine 2023-0 Yes 20mg Take 20 mg U nivers 20 mg 1-19 by mouth ity of tablet 09:40: in the [place] [address] morning. Medical Branch tenofovir 2023-0 Yes 300mg Take 300 Uni vers 300 mg 1-19 mg by ity of tablet 09:40: mouth in [place] [address] the Medical morning. Branch ibuprofen 2023-0 Yes 600mg Take 600 Uni vers 600 mg 1-19 mg by ity of tablet 09:40: mouth [place] [address] every 6 Medical (six) Branch hours as needed. risperiDONE 2023-0 Yes 1mg Take 1 mg U nivers (RISPERDAL) 1-19 by mouth ity of 1 mg tablet 09:40: in the [place] [address] morning Medical and 1 mg Branch in the evening. FLUoxetine 2023-0 Yes 20mg Take 20 mg U nivers 20 mg 1-19 by mouth ity of tablet 09:40: in the [place] [address] morning. Medical Branch ibuprofen 2023-0 Yes 600mg Take 600 Uni vers 600 mg 1-19 mg by ity of tablet 09:40: mouth [place] [address] every 6 Medical (six) Branch hours as needed. lamiVUDine 2023-0 Yes 300mg Take 300 Un eyal 300 mg 1-19 mg by ity of tablet 09:40: mouth in [place] [address] the Medical morning. Branch darunavir 2023-0 Yes 800mg Take 800 Uni vers ethanolate 1-19 mg by ity of (PREZISTA) 09:40: mouth in [place] 800 mg 29 the Medical tablet morning. Branch risperiDONE 2023-0 Yes 1mg Take 1 mg U nivers (RISPERDAL) 1-19 by mouth ity of 1 mg tablet 09:40: in the [place] [address] morning Medical and 1 mg Branch in the evening. riTONAvir 2023-0 Yes 100mg Take 100 Uni vers 100 mg 1-19 mg by ity of tablet 09:40: mouth in [place] [address] the Medical morning. Branch tenofovir 2023-0 Yes 300mg Take 300 Uni vers 300 mg 1-19 mg by ity of tablet 09:40: mouth in [place] [address] the Medical morning. Branch FLUoxetine 2023-0 Yes 20mg Take 20 mg U nivers 20 mg 1-19 by mouth ity of tablet 09:40: in the [place] [address] morning. Medical Branch ibuprofen 2023-0 Yes 600mg Take 600 Uni vers 600 mg 1-19 mg by ity of tablet 09:40: mouth [place] [address] every 6 Medical (six) Branch hours as needed. lamiVUDine 2023-0 Yes 300mg Take 300 Un eyal 300 mg 1-19 mg by ity of tablet 09:40: mouth in [place] [address] the Medical morning. Branch darunavir 2023-0 Yes 800mg Take 800 Uni vers ethanolate 1-19 mg by ity of (PREZISTA) 09:40: mouth in [facility] as 800 mg 29 the Medical tablet morning. Branch risperiDONE 2023-0 Yes 1mg Take 1 mg U nivers (RISPERDAL) 1-19 by mouth ity of 1 mg tablet 09:40: in the [place] [address] morning Medical and 1 mg Branch in the evening. riTONAvir 2023-0 Yes 100mg Take 100 Uni vers 100 mg 1-19 mg by ity of tablet 09:40: mouth in [place] [address] the Medical morning. Branch tenofovir 2023-0 Yes 300mg Take 300 Uni vers 300 mg 1-19 mg by ity of tablet 09:40: mouth in [place] [address] the Medical morning. Branch FLUoxetine 2023-0 Yes 20mg Take 20 mg U nivers 20 mg 1-19 by mouth ity of tablet 09:40: in the [place] [address] morning. Medical Branch ibuprofen 2023-0 Yes 600mg Take 600 Uni vers 600 mg 1-19 mg by ity of tablet 09:40: mouth [place] [address] every 6 Medical (six) Branch hours as needed. lamiVUDine 2023-0 Yes 300mg Take 300 Un eyal 300 mg 1-19 mg by ity of tablet 09:40: mouth in [place] [address] the Medical morning. Branch darunavir 2023-0 Yes 800mg Take 800 Uni vers ethanolate 1-19 mg by ity of (PREZISTA) 09:40: mouth in [facility] as 800 mg 29 the Medical tablet morning. Branch risperiDONE 2023-0 Yes 1mg Take 1 mg U nivers (RISPERDAL) 1-19 by mouth ity of 1 mg tablet 09:40: in the [facility] 29 morning Medical and 1 mg Branch in the evening. riTONAvir 2023-0 Yes 100mg Take 100 Uni vers 100 mg 1-19 mg by ity of tablet 09:40: mouth in [place] [address] the Medical morning. Branch tenofovir 2023-0 Yes 300mg Take 300 Uni vers 300 mg 1-19 mg by ity of tablet 09:40: mouth in [place] [address] the Medical morning. Branch FLUoxetine 2023-0 Yes 20mg Take 20 mg U nivers 20 mg 1-19 by mouth ity of tablet 09:40: in the [place] [address] morning. Medical Branch ibuprofen 2023-0 Yes 600mg Take 600 Uni vers 600 mg 1-19 mg by ity of tablet 09:40: mouth [place] [address] every 6 Medical (six) Branch hours as needed. lamiVUDine 2023-0 Yes 300mg Take 300 Un eyal 300 mg 1-19 mg by ity of tablet 09:40: mouth in [place] [address] the Medical morning. Branch darunavir 2023-0 Yes 800mg Take 800 Uni vers ethanolate 1-19 mg by ity of (PREZISTA) 09:40: mouth in [facility] as 800 mg 29 the Medical tablet morning. Branch risperiDONE 2023-0 Yes 1mg Take 1 mg U nivers (RISPERDAL) 1-19 by mouth ity of 1 mg tablet 09:40: in the [facility] 29 morning Medical and 1 mg Branch in the evening. riTONAvir 2023-0 Yes 100mg Take 100 Uni vers 100 mg 1-19 mg by ity of tablet 09:40: mouth in [place] [address] the Medical morning. Branch tenofovir 2023-0 Yes 300mg Take 300 Uni vers 300 mg 1-19 mg by ity of tablet 09:40: mouth in [place] [address] the Medical morning. Branch FLUoxetine 2023-0 Yes 20mg Take 20 mg U nivers 20 mg 1-19 by mouth ity of tablet 09:40: in the [place] [address] morning. Medical Branch ibuprofen 2022-0 Yes 600mg Take 600 Uni vers 600 mg 1-19 mg by ity of tablet 09:40: mouth [place] [address] every 6 Medical (six) Branch hours as needed. lamiVUDine 2022-0 Yes 300mg Take 300 Un eyal 300 mg 1-19 mg by ity of tablet 09:40: mouth in [place] [address] the Medical morning. Branch SYMTUZA 2022-0 Yes [id number] 1 po once U nivers 800-150-200 1-19 daily with it y of -10 mg Tab 00:00: [facility] Medical Branch SYMTUZA 2022-0 Yes [id number] 1 po once U nivers 800-150-200 1-19 daily with it y of -10 mg Tab 00:00: [facility] Medical Branch SYMTUZA 2022-0 Yes [id number] 1 po once U nivers 800-150-200 1-19 daily with it y of -10 mg Tab 00:00: [facility] Medical Branch SYMTUZA 2022-0 Yes [id number] 1 po once U nivers 800-150-200 1-19 daily with it y of -10 mg Tab 00:00: [place] [address] Medical Branch SYMTUZA 2022-0 Yes [id number] 1 po once U nivers 800-150-200 1-19 daily with it y of -10 mg Tab 00:00: [place] [address] Medical Branch SYMTUZA 2022-0 Yes [id number] 1 po once U nivers 800-150-200 1-19 daily with it y of -10 mg Tab 00:00: [place] [address] Medical Branch SYMTUZA 2022-0 Yes [id number] 1 po once U nivers 800-150-200 1-19 daily with it y of -10 mg Tab 00:00: [address] Branch SYMTUZA 2022-0 Yes [id number] 1 po once U nivers 800-150-200 1-19 daily with it y of -10 mg Tab 00:00: [address] Branch SYMTUZA 2022-0 Yes [id number] 1 po once U nivers 800-150-200 1-19 daily with it y of -10 mg Tab 00:00: [facility] Medical Branch SYMTUZA 3-0 Yes [id number] 1 po once U nivers 800-150-200 1-19 daily with it y of -10 mg Tab 00:00: [facility] Medical Branch SYMTUZA 3-0 Yes [id number] 1 po once U nivers 800-150-200 1-19 daily with it y of -10 mg Tab 00:00: [facility] Medical Branch SYMTUZA 3-0 Yes [id number] 1 po once U nivers 800-150-200 1-19 daily with it y of -10 mg Tab 00:00: [facility] Medical Branch SYMTUZA 3-0 Yes [id number] 1 po once U nivers 800-150-200 1-19 daily with it y of -10 mg Tab 00:00: [facility] Medical Branch SYMTUZA 3-0 Yes [id number] 1 po once U nivers 800-150-200 1-19 daily with it y of -10 mg Tab 00:00: [facility] Medical Branch SYMTUZA 3-0 Yes [id number] 1 po once U nivers 800-150-200 1-19 daily with it y of -10 mg Tab 00:00: [facility] Medical Branch SYMTUZA 3-0 Yes [id number] 1 po once U nivers 800-150-200 1-19 daily with it y of -10 mg Tab 00:00: [facility] Medical Branch SYMTUZA 3-0 Yes [id number] 1 po once U nivers 800-150-200 1-19 daily with it y of -10 mg Tab 00:00: [facility] Medical Branch SYMTUZA 3-0 Yes [id number] 1 po once U nivers 800-150-200 1-19 daily with it y of -10 mg Tab 00:00: [facility] Medical Branch SYMTUZA 3-0 Yes [id number] 1 po once U nivers 800-150-200 1-19 daily with it y of -10 mg Tab 00:00: [facility] Medical Branch SYMTUZA 3-0 Yes [id number] 1 po once U nivers 800-150-200 1-19 daily with it y of -10 mg Tab 00:00: [facility] Medical Branch SYMTUZA 2023-0 Yes [id number] 1 po once U nivers 800-150-200 1-19 daily with it y of -10 mg Tab 00:00: [facility] Medical Branch SYMTUZA 3-0 Yes [id number] 1 po once U nivers 800-150-200 1-19 daily with it y of -10 mg Tab 00:00: [facility] Medical Branch SYMTUZA 3-0 Yes [id number] 1 po once U nivers 800-150-200 1-19 daily with it y of -10 mg Tab 00:00: [facility] Medical Branch SYMTUZA 3-0 Yes [id number] 1 po once U nivers 800-150-200 1-19 daily with it y of -10 mg Tab 00:00: [facility] Medical Branch SYMTUZA 3-0 Yes [id number] 1 po once U nivers 800-150-200 1-19 daily with it y of -10 mg Tab 00:00: [facility] Medical Branch SYMTUZA 2023-0 Yes [id number] 1 po once U nivers 800-150-200 1-19 daily with it y of -10 mg Tab 00:00: [facility] Medical Branch SYMTUZA 2023-0 Yes [id number] 1 po once U nivers 800-150-200 1-19 daily with it y of -10 mg Tab 00:00: [facility] Medical Branch SYMTUZA 2023-0 Yes [id number] 1 po once U nivers 800-150-200 1-19 daily with it y of -10 mg Tab 00:00: [facility] Medical Branch SYMTUZA 2023-0 Yes [id number] 1 po once U nivers 800-150-200 1-19 daily with it y of -10 mg Tab 00:00: [place] [address] Medical Branch SYMTUZA 2023-0 Yes [id number] 1 po once U nivers 800-150-200 1-19 daily with it y of -10 mg Tab 00:00: [facility] Medical Branch SYMTUZA 2023-0 Yes [id number] 1 po once U nivers 800-150-200 1-19 daily with it y of -10 mg Tab 00:00: [facility] Medical Branch SYMTUZA 2023-0 Yes [id number] 1 po once U nivers 800-150-200 1-19 daily with it y of -10 mg Tab 00:00: [facility] Medical Branch SYMTUZA 3-0 Yes [id number] 1 po once U nivers 800-150-200 1-19 daily with it y of -10 mg Tab 00:00: [facility] Medical Branch SYMTUZA 3-0 Yes [id number] 1 po once U nivers 800-150-200 1-19 daily with it y of -10 mg Tab 00:00: [facility] Branch SYMTUZA 3-0 Yes [id number] 1 po once U nivers 800-150-200 1-19 daily with it y of -10 mg Tab 00:00: [facility] Medical Branch SYMTUZA 3-0 Yes [id number] 1 po once U nivers 800-150-200 1-19 daily with it y of -10 mg Tab 00:00: [facility] Medical Branch SYMTUZA 3-0 Yes [id number] 1 po once U nivers 800-150-200 1-19 daily with it y of -10 mg Tab 00:00: [facility] SYMTUZA 3-0 Yes [id number] 1 po once U nivers 800-150-200 1-19 daily with it y of -10 mg Tab 00:00: [facility] SYMTUZA 3-0 Yes [id number] 1 po once U nivers 800-150-200 1-19 daily with it y of -10 mg Tab 00:00: [facility] SYMTUZA 3-0 Yes [id number] 1 po once U nivers 800-150-200 1-19 daily with it y of -10 mg Tab 00:00: [facility] SYMTUZA 2023-0 Yes [id number] 1 po once U nivers 800-150-200 1-19 daily with it y of -10 mg Tab 00:00: [facility] SYMTUZA 2023-0 Yes [id number] 1 po once U nivers 800-150-200 1-19 daily with it y of -10 mg Tab 00:00: [facility] SYMTUZA 3-0 Yes [id number] 1 po once U nivers 800-150-200 1-19 daily with it y of -10 mg Tab 00:00: [facility] SYMTUZA 3-0 Yes [id number] 1 po once U nivers 800-150-200 1-19 daily with it y of -10 mg Tab 00:00: [facility] SYMTUZA 3-0 Yes [id number] 1 po once U nivers 800-150-200 1-19 daily with it y of -10 mg Tab 00:00: [facility] SYMTUZA 3-0 Yes [id number] 1 po once U nivers 800-150-200 1-19 daily with it y of -10 mg Tab 00:00: [facility] SYMTUZA 3-0 Yes [id number] 1 po once U nivers 800-150-200 1-19 daily with it y of -10 mg Tab 00:00: [facility] SYMTUZA 3-0 Yes [id number] 1 po once U nivers 800-150-200 1-19 daily with it y of -10 mg Tab 00:00: [facility] SYMTUZA 3-0 Yes [id number] 1 po once U nivers 800-150-200 1-19 daily with it y of -10 mg Tab 00:00: [facility] SYMTUZA 3-0 Yes [id number] 1 po once U nivers 800-150-200 1-19 daily with it y of -10 mg Tab 00:00: [facility] SYMTUZA 3-0 Yes [id number] 1 po once U nivers 800-150-200 1-19 daily with it y of -10 mg Tab 00:00: [facility] SYMTUZA 3-0 Yes [id number] 1 po once U nivers 800-150-200 1-19 daily with it y of -10 mg Tab 00:00: [facility] SYMTUZA 3-0 Yes [id number] 1 po once U nivers 800-150-200 1-19 daily with it y of -10 mg Tab 00:00: [facility] SYMTUZA Yes [id number] 1 po once U nivers 800-150-200 - daily with it y of -10 mg Tab 00:00: [facility] SYMTUZA 2022- No [id number] 1 po once Univers 800-150-200 04-06- daily with i ty of -10 mg Tab 00:00: [facility] Immunizations Ordered Filled Immunization Date Status Comments Sour e Immunization Name Name SARS-COV-2 COVID-19 2022-05-04 Completed Unive rsity of VACCINE 12 YRS+, 00:00:00 [place] [facility] BIVALENT 0.5ML, IM, Branc h (MODERNA BOOSTER) SARS-COV-2 COVID-19 2022-05-04 Completed Unive rsity of VACCINE 12 YRS+, 00:00:00 [place] [facility] BIVALENT 0.5ML, IM, Branc h (MODERNA BOOSTER) SARS-COV-2 COVID-19 2022-05-04 Completed Unive rsity of VACCINE 12 YRS+, 00:00:00 [place] [facility] BIVALENT 0.5ML, IM, Branc h (MODERNA BOOSTER) SARS-COV-2 COVID-19 2022-05-04 Completed Unive rsity of VACCINE 12 YRS+, 00:00:00 [place] [facility] BIVALENT 0.5ML, IM, Branc h (MODERNA BOOSTER) SARS-COV-2 COVID-19 2022-05-04 Completed Unive rsity of VACCINE 12 YRS+, 00:00:00 [place] [facility] BIVALENT 0.5ML, IM, Branc h (MODERNA BOOSTER) SARS-COV-2 COVID-19 2022-05-04 Completed Unive rsity of VACCINE 12 YRS+, 00:00:00 [place] [facility] BIVALENT 0.5ML, IM, Branc h (MODERNA BOOSTER) SARS-COV-2 COVID-19 2022-05-04 Completed Unive rsity of VACCINE 12 YRS+, 00:00:00 [place] [facility] BIVALENT 0.5ML, IM, Branc h (MODERNA BOOSTER) SARS-COV-2 COVID-19 2022-05-04 Completed Unive rsity of VACCINE 12 YRS+, 00:00:00 [place] [facility] BIVALENT 0.5ML, IM, Branc h (MODERNA BOOSTER) SARS-COV-2 COVID-19 2022-05-04 Completed Unive rsity of VACCINE 12 YRS+, 00:00:00 [place] [facility] BIVALENT 0.5ML, IM, Branc h (MODERNA BOOSTER) SARS-COV-2 COVID-19 2022-05-04 Completed Unive rsity of VACCINE 12 YRS+, 00:00:00 [place] [facility] BIVALENT 0.5ML, IM, Branc h (MODERNA BOOSTER) SARS-COV-2 COVID-19 2022-05-04 Completed Unive rsity of VACCINE 12 YRS+, 00:00:00 [place] [facility] BIVALENT 0.5ML, IM, Branc h (MODERNA BOOSTER) SARS-COV-2 COVID-19 2022-05-04 Completed Unive rsity of VACCINE 12 YRS+, 00:00:00 [place] [facility] BIVALENT 0.5ML, IM, Branc h (MODERNA BOOSTER) SARS-COV-2 COVID-19 2022-05-04 Completed Unive rsity of VACCINE 12 YRS+, 00:00:00 [place] [facility] BIVALENT 0.5ML, IM, Branc h (MODERNA BOOSTER) SARS-COV-2 COVID-19 2022-05-04 Completed Unive rsity of VACCINE 12 YRS+, 00:00:00 [place] [facility] BIVALENT 0.5ML, IM, Branc h (MODERNA BOOSTER) SARS-COV-2 COVID-19 2022-05-04 Completed Unive rsity of VACCINE 12 YRS+, 00:00:00 [place] [facility] BIVALENT 0.5ML, IM, Branc h (MODERNA BOOSTER) SARS-COV-2 COVID-19 2022-05-04 Completed Unive rsity of VACCINE 12 YRS+, 00:00:00 [place] [facility] BIVALENT 0.5ML, IM, Branc h (MODERNA) SARS-COV-2 COVID-19 2022-05-04 Completed Unive rsity of VACCINE 12 YRS+, 00:00:00 [place] [facility] BIVALENT 0.5ML, IM, Branc h (MODERNA) SARS-COV-2 COVID-19 2022-05-04 Completed Unive rsity of VACCINE 12 YRS+, 00:00:00 [place] [facility] BIVALENT 0.5ML, IM, Branc h (MODERNA) SARS-COV-2 COVID-19 2022-05-04 Completed Unive rsity of VACCINE 12 YRS+, 00:00:00 [place] [facility] BIVALENT 0.5ML, IM, Branc h (MODERNA) SARS-COV-2 COVID-19 2022-05-04 Completed Unive rsity of VACCINE 12 YRS+, 00:00:00 [place] [facility] BIVALENT 0.5ML, IM, Branc h (MODERNA) SARS-COV-2 COVID-19 2022-05-04 Completed Unive rsity of VACCINE 12 YRS+, 00:00:00 [place] [facility] BIVALENT 0.5ML, IM, Branc h (MODERNA) SARS-COV-2 COVID-19 2022-05-04 Completed Unive rsity of VACCINE 12 YRS+, 00:00:00 [place] [facility] BIVALENT 0.5ML, IM, Branc h (MODERNA) SARS-COV-2 COVID-19 2022-05-04 Completed Unive rsity of VACCINE 12 YRS+, 00:00:00 [place] [facility] BIVALENT 0.5ML, IM, Branc h (MODERNA-BLUE TOP) SARS-COV-2 COVID-19 2022-05-04 Completed Unive rsity of VACCINE 12 YRS+, 00:00:00 [place] [facility] BIVALENT 0.5ML, IM, Branc h (MODERNA-BLUE TOP) SARS-COV-2 COVID-19 2022-05-04 Completed Unive rsity of VACCINE 12 YRS+, 00:00:00 [place] [facility] BIVALENT 0.5ML, IM, Branc h (MODERNA-BLUE TOP) SARS-COV-2 COVID-19 2022-05-04 Completed Unive rsity of VACCINE 12 YRS+, 00:00:00 [place] [facility] BIVALENT 0.5ML, IM, Branc h (MODERNA-BLUE TOP) SARS-COV-2 COVID-19 2022-05-04 Completed Unive rsity of VACCINE 12 YRS+, 00:00:00 [place] [facility] BIVALENT 0.5ML, IM, Branc h (MODERNA-BLUE TOP) SARS-COV-2 COVID-19 2022-05-04 Completed Unive rsity of VACCINE 12 YRS+, 00:00:00 [place] [facility] BIVALENT 0.5ML, IM, Branc h (MODERNA-BLUE TOP) SARS-COV-2 COVID-19 2022-05-04 Completed Unive rsity of VACCINE 12 YRS+, 00:00:00 [place] [facility] BIVALENT 0.5ML, IM, Branc h (MODERNA-BLUE TOP) SARS-COV-2 COVID-19 2022-05-04 Completed Unive rsity of VACCINE 12 YRS+, 00:00:00 [place] [facility] BIVALENT 0.5ML, IM, Branc h (MODERNA-BLUE TOP) SARS-COV-2 COVID-19 2022-05-04 Completed Unive rsity of VACCINE 12 YRS+, 00:00:00 [place] [facility] BIVALENT 0.5ML, IM, Branc h (MODERNA-BLUE TOP) SARS-COV-2 COVID-19 2022-05-04 Completed Unive rsity of VACCINE 12 YRS+, 00:00:00 [place] [facility] BIVALENT 0.5ML, IM, Branc h (MODERNA-BLUE TOP) SARS-COV-2 COVID-19 2022-05-04 Completed Unive rsity of VACCINE 12 YRS+, 00:00:00 [place] [facility] BIVALENT 0.5ML, IM, Branc h (MODERNA-BLUE TOP) SARS-COV-2 COVID-19 2022-05-04 Completed Unive rsity of VACCINE 12 YRS+, 00:00:00 [place] [facility] BIVALENT 0.5ML, IM, Branc h (MODERNA-BLUE TOP) Vital Signs Vital Name Observation Time Observation Value Comments Source Systolic blood 2022-05-04 17:53:00 136 mm[Hg] Univer sity of pressure [facility] Diastolic blood 2022-05-04 17:53:00 81 mm[Hg] Unive rsity of pressure [facility] Heart rate 2022-05-04 17:53:00 101 /min [facility] Body temperature 2022-05-04 17:52:00 36.33 Emy [facility] Respiratory rate 2022-05-04 17:52:00 18 /min [facility] Body height 2022-05-04 17:52:00 165.1 cm [facility] Body weight 2022-05-04 17:52:00 73.029 kg [facility] [place] [facility] BMI 2022-05-04 17:52:00 26.79 kg/m2 Universi ty of [facility] Oxygen saturation in 2022-05-04 17:52:00 98 /min University of Arterial blood by [facility] Pulse oximetry Branch Systolic blood 2022-04-06 15:43:00 124 mm[Hg] Univer sity of pressure [facility] Diastolic blood 2022-04-06 15:43:00 90 mm[Hg] Unive rsity of pressure [facility] Heart rate 2022-04-06 15:43:00 102 /min Universi ty of [facility] Body temperature 2022-04-06 15:31:00 36.94 [facility] Respiratory rate 2022-04-06 15:31:00 18 /min Univ ersity of [facility] Body height 2022-04-06 15:31:00 152.4 cm [facility] Body weight 2022-04-06 15:31:00 77.111 kg Universi ty of [facility] BMI 2022-04-06 15:31:00 33.20 kg/m2 Universi ty of [facility] Oxygen saturation in 2022-04-06 15:31:00 98 /min University of Arterial blood by [facility] Pulse oximetry Branch Procedures Procedure Date / Time Performed Performing Clinician Sour e SARS-COV-2 COVID-19 2022-05-04 18:30:27 Bhupinder Arizmendi [facility] ty of [place] VACCINE 12 YRS+, Medical Branch BIVALENT 0.5ML, IM (MODERNA BOOSTER) Encounters Start End Encounter Admission Attending Care Care Encounter Source Date/Time Date/Time Type Type Clinicians Facility Department ID 2022-05-26 Inpatient [facility] [id number] [facility] 17:19:00 11 2022-10-12 2022-10-12 Refill KIERSTEN Arizmendi [id number] Univers 00:00:00 00:00:00 [facility] 350.1.13.10 i [place] [id number] [address] 2022-10-11 2022-10-11 Telephone Franki Melvin, [facility]ERS[facility] 1.2.840.114 [id number] Univers 00:00:00 00:00:00 Melisa R Y HEALTH 350.1.13.10 ity [place] [id number] [address] 2022-09-08 2022-09-08 [facility] 1.2.840.114 [id number] Univers 00:00:00 00:00:00 Winnie L Y HEALTH 350.1.13.10 ity [place] [id number] [address] 2022-08-17 2022-08-17 Case Franki Melvin, [facility] 1.2.840.114 1 [id number] Univers 00:00:00 00:00:00 Management Melisa R Y HEALTH 350.1.13.10 ity [place] [id number] [address] 2022-08-17 2022-08-17 Case Lori, [facility] 1.2.840.114 1 [id number] Univers 00:00:00 00:00:00 Management Nechelle Y HEALTH 350.1.13.10 ity of [place] [id number] [address] 2022-08-03 2022-08-03 Case Franki Melvin, [facility] 1.2.840.114 1 [id number] Univers 00:00:00 00:00:00 Management Melisa R Y HEALTH 350.1.13.10 ity [place] [id number] [address] 2022-08-03 2022-08-03 Case Lori, [facility] 1.2.840.114 1 [id number] Univers 00:00:00 00:00:00 Management Nechelle Y HEALTH 350.1.13.10 ity [place] [id number] [address] 2022-08-02 2022-08-02 Case Yesi, [facility] 1.2.840.114 10 [id number] Univers 00:00:00 00:00:00 Management Melisa L Y HEALTH 350.1.13.10 ity [place] [id number] [address] 2022-08-01 2022-08-01 [facility] [id number] Univers 10:30:00 10:30:00 BHUPINDER ity of [facility] 2022-08-01 2022-08-01 Telephone [facility], [facility] 1.2.840.114 [id number] Univers 00:00:00 00:00:00 Melisa R Y HEALTH 350.1.13.10 ity [place] [id number] [address] 2022-07-28 2022-07-28 Case Gonzalez, [facility] 1.2.840.114 10 [id number] Univers 00:00:00 00:00:00 Management Winnie L Y HEALTH 350.1.13.10 ity [place] [id number] [address] 2022-07-27 2022-07-27 Case Franki Melvin, [facility] 1.2.840.114 1 [id number] Univers 00:00:00 00:00:00 Management Melisa R Y HEALTH 350.1.13.10 ity [place] [id number] [address] 2022-07-27 2022-07-27 Case Lori, [facility] 1.2.840.114 1 [id number] Univers 00:00:00 00:00:00 Management Nechelle Y HEALTH 350.1.13.10 ity [place] [id number] [address] 2022-07-21 2022-07-21 Telephone [facility] 1.2.840.114 [id number] Univers 00:00:00 00:00:00 Melisa R Y HEALTH 350.1.13.10 ity [place] [id number] [address] 2022-07-19 2022-07-19 Case Yesi, [facility] 1.2.840.114 10 [id number] Univers 00:00:00 00:00:00 Management Melisa L Y HEALTH 350.1.13.10 ity [place] [id number] [address] 2022-07-19 2022-07-19 Case Sher, [facility] 1.2.009.421 [id number] Univers 00:00:00 00:00:00 Management Sabrina L Y HEALTH 350.1.13.10 ity of [place] [id number] [address] 2022-07-13 2022-07-13 Case Franki Melvin, [facility] 1.2.840.114 1 [id number] Univers 00:00:00 00:00:00 Management Melisa R Y HEALTH 350.1.13.10 ity of [place] [id number] [address] 2022-07-13 2022-07-13 Case Olivarez, [facility] 1.2.612.381 [id number] Univers 00:00:00 00:00:00 Management Sabrina L Y HEALTH 350.1.13.10 ity of [place] [id number] [address] 2022-07-13 2022-07-13 Case Olivarez, [facility] 1.2.432.021 [id number] Univers 00:00:00 00:00:00 Management Sabrina L Y HEALTH 350.1.13.10 ity of [place] [id number] [address] 2022-07-13 2022-07-13 Case Daryn, [facility] 1.2.005.902 [id number] Univers 00:00:00 00:00:00 Management Celso L Y HEALTH 350.1.13.10 ity of [place] [id number] [address] 2022-07-07 2022-07-07 [facility] 1.2.840.114 1 [id number] Univers 00:00:00 00:00:00 Management Melisa R Y HEALTH 350.1.13.10 ity of [place] [id number] [address] 2022-07-06 2022-07-06 [facility] R AMANDA, [facility] [id number] Univers 11:00:00 11:00:00 BHUPINDER ity of [facility] 2022-07-05 2022-07-05 Case Lisa, [facility] 1.2.840.114 10 [id number] Univers 00:00:00 00:00:00 Management Winnie L Y HEALTH 350.1.13.10 ity of [place] [id number] [address] 2022-07-03 2022-07-03 [facility] 1.2.840.114 1 [id number] Univers 00:00:00 00:00:00 Management Melisa R Y HEALTH 350.1.13.10 ity of [place] [id number] [address] 2022-06-22 2022-06-22 Telephone [facility] 1.2.840.114 [id number] Univers 00:00:00 00:00:00 Melisa R Y HEALTH 350.1.13.10 ity of [place] [id number] [address] 2022-06-22 2022-06-22 [facility] 1.2.840.114 1 [id number] Univers 00:00:00 00:00:00 Management Nechelle Y HEALTH 350.1.13.10 ity of [place] [id number] [address] 2022-06-19 2022-06-19 Telephone [facility] 1.2.840.114 [id number] Univers 00:00:00 00:00:00 Melisa R Y HEALTH 350.1.13.10 ity [place] [id number] [address] 2022-05-25 2022-05-25 Case Lori, [facility] 1.2.840.114 1 [id number] Univers 00:00:00 00:00:00 Management Nechelle Y HEALTH 350.1.13.10 ity [place] [id number] [address] 2022-05-25 2022-05-25 Case Franki Melvin, [facility] 1.2.840.114 1 [id number] Univers 00:00:00 00:00:00 Management Melisa R Y HEALTH 350.1.13.10 ity [place] [id number] [address] 2022-05-19 2022-05-19 Case Franki Melvin, [facility] 1.2.840.114 1 [id number] Univers 00:00:00 00:00:00 Management Melisa R Y HEALTH 350.1.13.10 ity of [place] [id number] [address] 2022-05-11 2022-05-11 Case Franki Melvin, [facility] 1.2.840.114 1 [id number] Univers 00:00:00 00:00:00 Management Melisa R Y HEALTH 350.1.13.10 ity [place] [id number] [address] 2022-05-04 2022-05-04 [facility] [id number] Univers 13:10:13 23:59:00 BHUPINDER ity of [facility] 2022-05-04 2022-05-04 [facility] 1.2.840.114 [id number] Univers 13:10:13 23:59:00 Encounter Bhupinder Y HEALTH 350.1.13.10 ity of [place] [id number] [facility] [address] Branch 2022-05-04 2022-05-04 Office [facility], [facility] 1.2.908.801 [id number] Univers 11:30:00 12:52:20 Visit Bhupinder Y HEALTH 350.1.13.10 i ty of [place] [id number] [facility] [address] Branch 2022-05-04 2022-05-04 Case Lisa, [facility] 1.2.840.114 10 [id number] Univers 00:00:00 00:00:00 Management Winnie L Y HEALTH 350.1.13.10 ity [place] [id number] [place] 5[address]49 Branch 2022-05-04 2022-05-04 Case Franki Hanco, [facility] 1.2.840.114 1 [id number] Univers 00:00:00 00:00:00 Management Melisa R Y HEALTH 350.1.13.10 ity of [place] [id number] [place] [address]64849 Branch 2022-05-04 2022-05-04 Case Lori, [facility] 1.2.840.114 1 [id number] Univers 00:00:00 00:00:00 Management Nechelle Y HEALTH 350.1.13.10 ity of [place] [id number] [place] 564849 [place] 2022-05-03 2022-05-03 Case [facility], UN[facility]ERSIT 1.2.840.114 1 [id number] Univers 00:00:00 00:00:00 Management Melisa R Y HEALTH 350.1.13.10 ity of [place] [id number] [place] [address] Branch 2022-05-02 2022-05-02 Telephone Franki [facility], [facility] 1.2.840.114 [id number] Univers 00:00:00 00:00:00 Melisa R Y HEALTH 350.1.13.10 ity [place] [id number] [address] 2022-04-24 2022-04-24 Telephone Franki Melvin, [facility] 1.2.840.114 [id number] Univers 00:00:00 00:00:00 Melisa R Y HEALTH 350.1.13.10 ity [place] [id number] [address] 2022-04-20 2022-04-20 Case Franki Melvin, [facility] 1.2.840.114 1 [id number] Univers 00:00:00 00:00:00 Management Emlisa R Y HEALTH 350.1.13.10 ity of [place] [id number] [address] 2022-04-20 2022-04-20 Case Lori, [facility] 1.2.840.114 1 [id number] Univers 00:00:00 00:00:00 Management Nechelle Y HEALTH 350.1.13.10 ity [place] [id number] [address] 2022-04-19 2022-04-19 Outpatient R LYNDA, [facility] [id number] Univers 11:00:00 11:00:00 KRYSTA itestevan of [facility] 2022-04-19 2022-04-19 Case Franki Melvin, [facility] 1.2.840.114 1 [id number] Univers 00:00:00 00:00:00 Management Melisa R Y HEALTH 350.1.13.10 ity [place] [id number] [address] 2022-04-18 2022-04-18 Case Franki Melvin, [facility] 1.2.840.114 1 [id number] Univers 00:00:00 00:00:00 Management Melisa R Y HEALTH 350.1.13.10 ity [place] [id number] [address] 2022-04-18 2022-04-18 Case Franki Melvin, [facility] 1.2.840.114 1 [id number] Univers 00:00:00 00:00:00 Management Melisa R Y HEALTH 350.1.13.10 ity [place] [id number] [address] 2022-04-17 2022-04-17 Case Franki Melvin, [facility] 1.2.840.114 1 [id number] Univers 00:00:00 00:00:00 Management Melisa R Y HEALTH 350.1.13.10 ity of [place] [id number] [address] 2022-04-14 2022-04-14 Case Franki Melvin, [facility] 1.2.840.114 1 [id number] Univers 00:00:00 00:00:00 Management Melisa R Y HEALTH 350.1.13.10 ity of [place] [id number] [address] 2022-04-14 2022-04-14 Telephone Franki Melvin, [facility] 1.2.840.114 [id number] Univers 00:00:00 00:00:00 Melisa R Y HEALTH 350.1.13.10 ity of [place] [id number] [address] 2022-04-12 2022-04-12 Outpatient R LAISHA, [facility] [id number] Univers 08:00:00 08:00:00 TRANSON ity of [facility] 2022-04-11 2022-04-11 Case Franki Melvin, [facility] 1.2.840.114 1 [id number] Univers 00:00:00 00:00:00 Management Melisa R Y HEALTH 350.1.13.10 ity [place] [id number] [address] 2022-04-10 2022-04-10 Case Franki Melvin, [facility] 1.2.840.114 1 [id number] Univers 00:00:00 00:00:00 Management Melisa R Y HEALTH 350.1.13.10 ity of [place] [id number] [address] 2022-04-07 2022-04-07 Case Franki Melvin, [facility] 1.2.840.114 1 [id number] Univers 00:00:00 00:00:00 Management Melisa R Y HEALTH 350.1.13.10 ity of [place] [id number] [facility] [address] [place] 2022-04-06 2022-04-06 Lodging House Keeper [facility] 1.2.840.114 [id number] Univers 11:45:00 12:00:[address] [facility] HEALTH 350.1.13.10 it[place] [phone] [place] [address] [address] 2022-04-06 2022-04-06 Outpatient Melinda RABAGO [facility] [id number] Univers 11:45:00 11:45:00 RIDDHI calderon [facility] 2022-04-06 2022-04-06 Office [facility], UNIVERSIT [id number] Univers 09:00:00 10:00:00 Visit Bhupinder Y HEALTH 350.1.13.10 i ty [place] [id number] [address] 2022-04-06 2022-04-06 Case Lori UNIVERSIT 1.2.840.114 [id number] Univers 00:00:00 00:00:00 Management Nechelle Y HEALTH 350.1.13.10 ity [place] [id number] [place] [id number] [place] 2022-04-06 2022-04-06 Case Lori, UNIVERSIT 1.2.840.114 1 [id number] Univers 00:00:00 00:00:00 Management Nechelle Y HEALTH 350.1.13.10 [place] [id number] [address] 2022-03-24 2022-03-24 Lyly Gonzalez UNIVERSIT 1.2.840.114 [id number] Univers 00:00:00 00:00:00 [facility] 350.1.13.10 ity of [facility] 4.2.7.2.686 Mona gonzales [phone] [facility] [address] Results This patient has no known results. Notes Date/Time Note Provider Source 2022-10-12 [facility] 16:39:43-00:00 [facility] contacted me for refill of Symtuza Last seen in 05/11 The employment case manager have be en trying to reach including yesterday. They sent a text Will refill Symtuza with one 1 RF Electronically signed by Bhupinder Arizmendi PA at 4:41 PM CDT 2022-10-11 Formatting of this note might be differe nt from the original. Melisa Beach RN [facility] 09:25:36-00:00 Attempted phone contact, how ever phone is not accepting calls. Sent text requesting a return call in order to check in with client and reschedule ID. 30 min taken
[2022-11-13] MEDS ORDERED: TDAP (DIPHTH,PERTUSS(ACELL),TET VAC) 0.5 ML VIAL IMVAC ONE (04:26)
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
--- NOTE | 2022-11-13 04:38 | ER ---
Nurse's Notes [facility] Name: Hernandez Burr Age: 46 yrs Sex: Male : 1975 Arrival Date: 11/13/2022 Time: 04:12 Bed 4 Private MD: Diagnosis: Laceration without foreign body, right lower leg Presentation: 11/13 04:23 Chief complaint: EMS states: POLICE DIRECTED PT TO ER FOR RIGHT LOWER LATERAL LEG LAC bp AT [facility]. Coronavirus screen: At this time, the client does not indicate any symptoms associated with coronavirus-19. Ebola Screen: No symptoms or risks identified at this time. Initial Sepsis Screen: Does the patient meet any 2 criteria? No. Patient's initial sepsis screen is negative. Does the patient have a suspected source of infection? No. Patient's initial sepsis screen is negative. Risk Assessment: Do you want to hurt yourself or someone else? Patient reports no desire to harm self or others. Onset of symptoms was November 13, 2022 at 04:00. 04:23 Method Of Arrival: EMS: [facility] bp 04:23 Acuity: KEERTHI 3 bp Triage Assessment: 04:24 General: Appears in no apparent distress. Behavior is cooperative, appropriate for age, bp anxious. Pain: Complains of pain in lateral aspect of right calf. EENT: No deficits noted. Neuro: No deficits noted. Cardiovascular: No deficits noted. Respiratory: No deficits noted. GI: No signs and/or symptoms were reported involving the gastrointestinal system. : No signs and/or symptoms were reported regarding the genitourinary system. Derm: No deficits noted. Musculoskeletal: No deficits noted. Injury Description: Laceration sustained to lateral aspect of right calf is 0.5 to 2.5 cm long, not bleeding. Historical: - Allergies: 04:24 NKDA; bp - Home Meds: 04:24 Unable to obtain [Active]; bp - PMHx: 04:24 Unable to Obtain; bp - Immunization history:: Last tetanus immunization: unknown. - Social history:: Smoking status: unknown. Screenin:25 [facility] ED Fall Risk Assessment (Adult) History of falling in the last 3 months, bp including since admission No falls in past 3 months (0 pts). Abuse screen: Denies threats or abuse. Denies injuries from another. Nutritional screening: No deficits noted. Tuberculosis screening: No symptoms or risk factors identified. Assessment: 04:25 General: SEE TRIAGE NOTE. bp Vital Signs: 04:23 BP 145 / 96; Pulse 87; Resp 16; Temp 98; Pulse Ox 100% ; bp ED Course: 04:13 Patient arrived in ED. rv1 04:13 Vincent Peralta DO is Attending Physician. ms3 04:23 Robert Garcia, RN is Primary Nurse. bp 04:24 Triage completed. bp 04:24 Arm band placed on. bp 04:25 Patient has correct armband on for positive identification. Bed in low position. Call bp light in reach. Side rails up X2. 04:37 Rolan Quintana DO is Referral Physician. ms3 04:48 Assist provider with laceration repair on lateral aspect of right calf that was 2.5 cm. bp or less using sutures. Set up tray. Performed by Vincent Peralta DO Dressed with Neosporin, Patient tolerated well. 04:48 Patient did not have IV access during this emergency room visit. bp Administered Medications: 04:26 Drug: Lidocaine-Epinephrine Infiltration -1%: (1:100,000) 10 ml Volume: 20 ml; Route: bp Infiltration; 04:26 Drug: Tetanus-Diphtheria Toxoid IM Ped 0.5 ml {Court Transcriber: [employer] ([employer] bp Exp: 04/05/2023. Lot #: [id number]. } Route: IM; Site: right deltoid; 04:26 Follow up: Response: No adverse reaction bp Medication: 04:25 VIS not applicable for this client. bp Outcome: 04:38 Discharge ordered by . ms3 04:48 Discharged to home ambulatory. bp 04:48 Condition: stable 04:48 Discharge instructions given to patient, Instructed on discharge instructions, follow up and referral plans. wound care, Demonstrated understanding of instructions, follow-up care, wound care. 04:49 Patient left the ED. bp Signatures: Robert Garcia, BULMARO RN bp Vincent Peralta DO DO ms3 WoodruffMeghan [email or web address] rv1
[2022-11-13 04:58] VITALS: BP 145/96; TEMP 98; O2SAT 100
== END 2022-11-13 04:49 | disposition home or self-care (01) ==
LOC: ER 04:12
PROC: 0HQKXZZ Repair Right Lower Leg Skin, External Approach (ICD-10-PCS; principal; 2022-11-13)
DX: S81.811A Laceration without foreign body, right lower leg, initial encounter (principal)
CPT/HCPCS: 90471; 99284

== ENCOUNTER 2023-07-13 17:27 | Emergency (ER) | payer OTHER ==
--- OUTSIDE RECORDS SUMMARY | 2023-07-13 17:32 | XMS REPORT | Continuity of Care Document ---
Author Name Unknown Address [address] [facility] [address] [place] [address] [facility] thconnect Address [address] [facility] [address] [place] [address] Care Team Providers Care Manager Of Merchandising Name Role Phone [facility], [place] Dept Of Primary Care Physician Franki Melvin RN, Melisa Lawrence Attending Clinician Bhupinder Hernandez Attending Clinician [phone] Winnie Gonzalez LVN Attending Clinician Amber Peters MA Attending Clinician Melisa Toure RN Attending Clinician BHUPINDER Coy Attending Clinician Unavailable Sabrina Olivarez MA Attending Clinician UnavailCelso Awad MA Attending Clinician UnavailSASHA Jacob Attending Clinician Unavailable KRYSTA HOWELL Attending Clinician Unavailable YULISA INTERIANO Attending Clinician Unavailable [facility] Attending Clinician Unavailable Riddhi Rabago MD Attending Clinician RIDDHI RABAGO Attending Clinician Unavailable Payers Payer Name Policy Type Policy Number Effective Date Expirati on Date Source Problems Condition Name Condition Details Condition Category Status Onset Date Resolution Date Last Treatment Date Treating Clinician Comments Source Obesity (BMI 30-39.9) Obesity (BMI 30-39.9) Disease Active 10-27 00:00: 00 [facility] Allergies, Adverse Reactions, Alerts Allergy Name Allergy Type Status Severity Reaction(s) Onset Date Inactive Date Treating Clinician Comments Source Penicill ins Propensi ty to adverse reaction s Active Other - See comments 04-06 00:00: 00 [facility] PENICILL INS Drug Class Active Other-Cmnt 04-06 00:00: 00 [facility] NO KNOWN ALLERGIE S Drug Class Active [facility] Social History Social Habit Start Date Stop Date Quantity Comments Source History of tobacco use Cigarette Smoker [facility] Gender identity [facility] Sexual orientation [facility] Exposure to SARS-CoV-2 (event) 2022-04-24 00:00:00 2022-05-04 11:45:00 Not sure [facility] Alcohol intake 2022-05-04 00:00:00 2022-05-04 00:00:00 Lifetime non-drinker (finding) [facility] Tobacco use and exposure 2022-04-06 00:00:00 2022-04-06 00:00:00 Smokeless tobacco non-user [facility] History of Social function 2022-04-06 00:00:00 2022-04-06 00:00:00 [facility] Sex Assigned At 1975 00:00:00 1975 00:00:00 [facility] Smoking Status Start Date Stop Date Source Tobacco smoking consumption unknown [facility] Smokes tobacco daily 2022-04-06 00:00:00 [facility] Medications Ordered Medication Name Filled Medication Name Start Date Stop Date Current Medication? Ordering Clinician Indication Dosage Frequency Signature (SIG) Comments Components Source SYMTUZA 800-150-200 -10 mg Tab 06-27 00:00: 00 Yes [id number] TAKE ONE TABLET BY MOUTH DAILY WITH FOOD [facility] darunavir-c obi-emtri-t enof ala (SYMTUZA) 800-150-200 -10 mg Tab 04-06 00:00: 00 06-27 00:00 :00 No [id number] TAKE ONE TABLET BY MOUTH DAILY WITH FOOD [facility] SYMTUZA 800-150-200 -10 mg Tab 2022-03 0-20 00:00: 00 04-06 00:00 :00 No [id number] 1 po once daily with foood [facility] SYMTUZA 800-150-200 -10 mg Tab 7-27 00:00: 00 Yes [id number] 1 po once daily with foood [facility] lamiVUDine 300 mg tablet 2-16 12:05: 01 05-04 00:00 :00 No 300mg Take 300 mg by mouth in the morning. [facility] darunavir ethanolate (PREZISTA) 800 mg tablet -16 12:04: 55 05-04 00:00 :00 No 800mg Take 800 mg by mouth in the morning. [facility] riTONAvir 100 mg tablet -16 12:04: 55 05-04 00:00 :00 No 100mg Take 100 mg by mouth in the morning. [facility] tenofovir 300 mg tablet 16 12:04: 55 05-04 00:00 :00 No 300mg Take 300 mg by mouth in the morning. [facility] risperiDONE (RISPERDAL) 1 mg tablet 04-06 09:40: 29 Yes 1mg Take 1 mg by mouth in the morning and 1 mg in the evening. [facility] FLUoxetine 20 mg tablet 04-06 09:40: 29 Yes 20mg Take 20 mg by mouth in the morning. [facility] ibuprofen 600 mg tablet 04-06 09:40: 29 Yes 600mg Take 600 mg by mouth every 6 (six) hours as needed. [facility] darunavir ethanolate (PREZISTA) 800 mg tablet 04-06 09:40: 29 05-04 00:00 :00 No 800mg Take 800 mg by mouth in the morning. [facility] riTONAvir 100 mg tablet 04-06 09:40: 29 05-04 00:00 :00 No 100mg Take 100 mg by mouth in the morning. [facility] tenofovir 300 mg tablet 04-06 09:40: 29 05-04 00:00 :00 No 300mg Take 300 mg by mouth in the morning. [facility] lamiVUDine 300 mg tablet 04-06 09:40: 29 05-04 00:00 :00 No 300mg Take 300 mg by mouth in the morning. [facility] SYMTUZA 800-150-200 -10 mg Tab 04-06 00:00: 00 10-12 00:00 :00 No [id number] 1 po once daily with foood [facility] Immunizations Ordered Immunization Name Filled Immunization Name Date Status Comments Source SARS-COV-2 COVID-19 VACCINE 12 YRS+, BIVALENT 0.5ML, IM, (MODERNA BOOSTER) 2022-05-04 00:00:00 Completed [facility] SARS-COV-2 COVID-19 VACCINE 12 YRS+, BIVALENT 0.5ML, IM, (MODERNA BOOSTER) 2022-05-04 00:00:00 Completed [facility] SARS-COV-2 COVID-19 VACCINE 12 YRS+, BIVALENT 0.5ML, IM, (MODERNA BOOSTER) 2022-05-04 00:00:00 Completed [facility] SARS-COV-2 COVID-19 VACCINE 12 YRS+, BIVALENT 0.5ML, IM, (MODERNA BOOSTER) 2022-05-04 00:00:00 Completed [facility] SARS-COV-2 COVID-19 VACCINE 12 YRS+, BIVALENT 0.5ML, IM, (MODERNA BOOSTER) 2022-05-04 00:00:00 Completed [facility] SARS-COV-2 COVID-19 VACCINE 12 YRS+, BIVALENT 0.5ML, IM, (MODERNA BOOSTER) 2022-05-04 00:00:00 Completed [facility] SARS-COV-2 COVID-19 VACCINE 12 YRS+, BIVALENT 0.5ML, IM, (MODERNA BOOSTER) 2022-05-04 00:00:00 Completed [facility] SARS-COV-2 COVID-19 VACCINE 12 YRS+, BIVALENT 0.5ML, IM, (MODERNA BOOSTER) 2022-05-04 00:00:00 Completed [facility] SARS-COV-2 COVID-19 VACCINE 12 YRS+, BIVALENT 0.5ML, IM, (MODERNA BOOSTER) 2022-05-04 00:00:00 Completed [facility] SARS-COV-2 COVID-19 VACCINE 12 YRS+, BIVALENT 0.5ML, IM, (MODERNA BOOSTER) 2022-05-04 00:00:00 Completed [facility] SARS-COV-2 COVID-19 VACCINE 12 YRS+, BIVALENT 0.5ML, IM, (MODERNA BOOSTER) 2022-05-04 00:00:00 Completed [facility] SARS-COV-2 COVID-19 VACCINE 12 YRS+, BIVALENT 0.5ML, IM, (MODERNA BOOSTER) 2022-05-04 00:00:00 Completed [facility] SARS-COV-2 COVID-19 VACCINE 12 YRS+, BIVALENT 0.5ML, IM, (MODERNA BOOSTER) 2022-05-04 00:00:00 Completed [facility] SARS-COV-2 COVID-19 VACCINE 12 YRS+, BIVALENT 0.5ML, IM, (MODERNA BOOSTER) 2022-05-04 00:00:00 Completed [facility] SARS-COV-2 COVID-19 VACCINE 12 YRS+, BIVALENT 0.5ML, IM, (MODERNA BOOSTER) 2022-05-04 00:00:00 Completed [facility] SARS-COV-2 COVID-19 VACCINE 12 YRS+, BIVALENT 0.5ML, IM, (MODERNA) 2022-05-04 00:00:00 Completed [facility] SARS-COV-2 COVID-19 VACCINE 12 YRS+, BIVALENT 0.5ML, IM, (MODERNA) 2022-05-04 00:00:00 Completed [facility] SARS-COV-2 COVID-19 VACCINE 12 YRS+, BIVALENT 0.5ML, IM, (MODERNA) 2022-05-04 00:00:00 Completed [facility] SARS-COV-2 COVID-19 VACCINE 12 YRS+, BIVALENT 0.5ML, IM, (MODERNA) 2022-05-04 00:00:00 Completed [facility] SARS-COV-2 COVID-19 VACCINE 12 YRS+, BIVALENT 0.5ML, IM, (MODERNA) 2022-05-04 00:00:00 Completed [facility] SARS-COV-2 COVID-19 VACCINE 12 YRS+, BIVALENT 0.5ML, IM, (MODERNA) 2022-05-04 00:00:00 Completed [facility] SARS-COV-2 COVID-19 VACCINE 12 YRS+, BIVALENT 0.5ML, IM, (MODERNA) 2022-05-04 00:00:00 Completed [facility] SARS-COV-2 COVID-19 VACCINE 12 YRS+, BIVALENT 0.5ML, IM, (MODERNA-BLUE TOP) 2022-05-04 00:00:00 Completed [facility] SARS-COV-2 COVID-19 VACCINE 12 YRS+, BIVALENT 0.5ML, IM, (MODERNA-BLUE TOP) 2022-05-04 00:00:00 Completed [facility] SARS-COV-2 COVID-19 VACCINE 12 YRS+, BIVALENT 0.5ML, IM, (MODERNA-BLUE TOP) 2022-05-04 00:00:00 Completed [facility] SARS-COV-2 COVID-19 VACCINE 12 YRS+, BIVALENT 0.5ML, IM, (MODERNA-BLUE TOP) 2022-05-04 00:00:00 Completed [facility] SARS-COV-2 COVID-19 VACCINE 12 YRS+, BIVALENT 0.5ML, IM, (MODERNA-BLUE TOP) 2022-05-04 00:00:00 Completed [facility] SARS-COV-2 COVID-19 VACCINE 12 YRS+, BIVALENT 0.5ML, IM, (MODERNA-BLUE TOP) 2022-05-04 00:00:00 Completed [facility] SARS-COV-2 COVID-19 VACCINE 12 YRS+, BIVALENT 0.5ML, IM, (MODERNA-BLUE TOP) 2022-05-04 00:00:00 Completed [facility] SARS-COV-2 COVID-19 VACCINE 12 YRS+, BIVALENT 0.5ML, IM, (MODERNA-BLUE TOP) 2022-05-04 00:00:00 Completed [facility] SARS-COV-2 COVID-19 VACCINE 12 YRS+, BIVALENT 0.5ML, IM, (MODERNA-BLUE TOP) 2022-05-04 00:00:00 Completed [facility] SARS-COV-2 COVID-19 VACCINE 12 YRS+, BIVALENT 0.5ML, IM, (MODERNA-BLUE TOP) 2022-05-04 00:00:00 Completed [facility] SARS-COV-2 COVID-19 VACCINE 12 YRS+, BIVALENT 0.5ML, IM, (MODERNA-BLUE TOP) 2022-05-04 00:00:00 Completed [facility] SARS-COV-2 COVID-19 VACCINE 12 YRS+, BIVALENT 0.5ML, IM, (MODERNA-BLUE TOP) 2022-05-04 00:00:00 Completed [facility] SARS-COV-2 COVID-19 VACCINE 12 YRS+, BIVALENT 0.5ML, IM, (MODERNA-BLUE TOP) 2022-05-04 00:00:00 Completed [facility] SARS-COV-2 COVID-19 VACCINE 12 YRS+, BIVALENT 0.5ML, IM, (MODERNA-BLUE TOP) 2022-05-04 00:00:00 Completed [facility] SARS-COV-2 COVID-19 VACCINE 12 YRS+, BIVALENT 0.5ML, IM, (MODERNA-BLUE TOP) Unknown Completed [facility] SARS-COV-2 COVID-19 VACCINE 12 YRS+, BIVALENT 0.5ML, IM, (MODERNA-BLUE TOP) Unknown Completed [facility] SARS-COV-2 COVID-19 VACCINE 12 YRS+, BIVALENT 0.5ML, IM, (MODERNA-BLUE TOP) Unknown Completed [facility] SARS-COV-2 COVID-19 VACCINE 12 YRS+, BIVALENT 0.5ML, IM, (MODERNA-BLUE TOP) Unknown Completed [facility] SARS-COV-2 COVID-19 VACCINE 12 YRS+, BIVALENT 0.5ML, IM, (MODERNA-BLUE TOP) Unknown Completed [facility] SARS-COV-2 COVID-19 VACCINE 12 YRS+, BIVALENT 0.5ML, IM, (MODERNA-BLUE TOP) Unknown Completed [facility] SARS-COV-2 COVID-19 VACCINE 12 YRS+, BIVALENT 0.5ML, IM, (MODERNA-BLUE TOP) Unknown Completed [facility] SARS-COV-2 COVID-19 VACCINE 12 YRS+, BIVALENT 0.5ML, IM, (MODERNA-BLUE TOP) Unknown Completed [facility] SARS-COV-2 COVID-19 VACCINE 12 YRS+, BIVALENT 0.5ML, IM, (MODERNA-BLUE TOP) Unknown Completed [facility] SARS-COV-2 COVID-19 VACCINE 12 YRS+, BIVALENT 0.5ML, IM, (MODERNA-BLUE TOP) Unknown Completed [facility] Vital Signs Vital Name Observation Time Observation Value Comments S ource Systolic blood pressure 2022-05-04 17:53:00 136 mm[Hg] [facility] Diastolic blood pressure 2022-05-04 17:53:00 81 mm[Hg] [facility] Heart rate 2022-05-04 17:53:00 101 /min [facility] Body temperature 2022-05-04 17:52:00 36.33 Emy [facility] Respiratory rate 2022-05-04 17:52:00 18 /min [facility] Body height 2022-05-04 17:52:00 165.1 cm [facility] Body weight 2022-05-04 17:52:00 73.029 kg [facility] BMI 2022-05-04 17:52:00 26.79 kg/m2 [facility] Oxygen saturation in Arterial blood by Pulse oximetry 2022-05-04 17:52:00 98 /min [facility] Systolic blood pressure 2022-04-06 15:43:00 124 mm[Hg] [facility] Diastolic blood pressure 2022-04-06 15:43:00 90 mm[Hg] [facility] Heart rate 2022-04-06 15:43:00 102 /min [facility] Body temperature 2022-04-06 15:31:00 36.94 Emy [facility] Respiratory rate 2022-04-06 15:31:00 18 /min [facility] Body height 2022-04-06 15:31:00 152.4 cm [facility] Body weight 2022-04-06 15:31:00 77.111 kg [facility] BMI 2022-04-06 15:31:00 33.20 kg/m2 [facility] Oxygen saturation in Arterial blood by Pulse oximetry 2022-04-06 15:31:00 98 /min [place] [facility] Procedures Procedure Date / Time Performed Performing Clinicia n Source SARS-COV-2 COVID-19 VACCINE 12 YRS+, BIVALENT 0.5ML, IM (MODERNA BOOSTER) 2022-05-04 18:30:[address] [facility] Encounters Start Date/Time End Date/Time Encounter Type Admission Type Attending Clinicians Care Facility Care Department Encounter ID Source 2022-05-26 17:19:[address] [facility] [id number] [facility] 2023-07-11 00:00:00 2023-07-11 00:00:00 Telephone Franki Melvin [facility] 1.0.114 350.1.13.10 4.2.7.2.686 [id number] 089 [id number] [facility] 2023-06-28 00:00:00 2023-06-28 00:00:00 [facility] 1.0.114 350.1.13.10 4.2.7.2.686 [id number] [facility] 2023-04-06 00:00:00 2023-04-06 00:00:00 Refill [facility] 1.0.114 350.1.13.10 4.2.7.2.686 [id number] [id number] [facility] 2022-11-22 00:00:00 2022-11-22 00:00:00 Case Management Franki Melvin [facility] 1.840.114 350.1.13.10 4.2.7.2.686 [id number] [facility] 2022-10-12 00:00:00 2022-10-12 00:00:00 Daniel Lambrey [facility] 1.2.840.114 350.1.13.10 4.2.7.2.686 [id number] [facility] 2022-10-11 00:00:00 2022-10-11 00:00:00 Telephone Melisa Beach [facility] 1.2.840.114 350.1.13.10 4.2.7.2.686 [id number] [id number] [facility] 2022-09-08 00:00:00 2022-09-08 00:00:00 Telephone GonzalezWinnie Ahmadi [facility] 1.2.840.114 350.1.13.10 4.2.7.2.686 [id number] [facility] 2022-08-17 00:00:00 2022-08-17 00:00:00 Case Management Melisa Beach [facility] 1.2.840.114 350.1.13.10 4.2.7.2.686 [id number] [facility] 2022-08-17 00:00:00 2022-08-17 00:00:00 Case Management Amber Sandoval [facility] 1.2.840.114 350.1.13.10 4.2.7.2.686 [id number] [facility] 2022-08-03 00:00:00 2022-08-03 00:00:00 Case Management Franki Melisa Melvin [facility] 1.2.840.114 350.1.13.10 4.2.7.2.686 [id number] [facility] 2022-08-03 00:00:00 2022-08-03 00:00:00 Case [facility] 1.2.840.114 350.1.13.10 4.2.7.2.686 [id number] [facility] 2022-08-02 00:00:00 2022-08-02 00:00:00 Case Management Melisa Key [facility] 1.2.840.114 350.1.13.10 4.2.7.2.686 [id number] [facility] 2022-08-01 10:30:00 2022-08-01 10:30:00 Outpatient BHUPINDER YOON [facility] [id number] [facility] 2022-08-01 00:00:00 2022-08-01 00:00:00 Telephone Franki Melvin Melisa [facility] 1.2.840.114 350.1.13.10 4.2.7.2.686 [id number] 089 [id number] [facility] 2022-07-28 00:00:00 2022-07-28 00:00:00 Case Management Winnie Gonzalez [facility] 1.2.840.114 350.1.13.10 4.2.7.2.686 [id number] [facility] 2022-07-27 00:00:00 2022-07-27 00:00:00 Case Management Melisa Beach [facility] 1.2.840.114 350.1.13.10 4.2.7.2.686 [id number] [facility] 2022-07-27 00:00:00 2022-07-27 00:00:00 Case Management [facility] 1.2.840.114 350.1.13.10 4.2.7.2.686 [id number] [facility] 2022-07-21 00:00:00 2022-07-21 00:00:00 Telephone Melisa Beach [facility] 1.2.840.114 350.1.13.10 4.2.7.2.686 [id number] [facility] 2022-07-19 00:00:00 2022-07-19 00:00:00 Case Management Melisa Key [facility] 1.2.840.114 350.1.13.10 4.2.7.2.686 [id number] [id number] [facility] 2022-07-19 00:00:00 2022-07-19 00:00:00 Case Management OlivarezSabrina Kelsy [facility] 1.2840.114 350.1.13.10 4.2.7.2.686 [id number] [id number] [facility] 2022-07-13 00:00:00 2022-07-13 00:00:00 Case Management Melisa Beach [facility] 1.2.840.114 350.1.13.10 4.2.7.2.686 [id number] [facility] 2022-07-13 00:00:00 2022-07-13 00:00:00 Case Management OlivarezSabrina ralph Kelsy [facility] 1.2840.114 350.1.13.10 4.2.7.2.686 [id number] [facility] 2022-07-13 00:00:00 2022-07-13 00:00:00 Case Management OlivarezSabrina Kelsy [facility] 1.2840.114 350.1.13.10 4.2.7.2.686 [id number] [facility] 2022-07-13 00:00:00 2022-07-13 00:00:00 Case Management Celso Stearns [facility] 1.2.840.114 350.1.13.10 4.2.7.2.686 [id number] 089 [id number] [facility] 2022-07-07 00:00:00 2022-07-07 00:00:00 Case Management Melisa Beach [facility] 1.2.840.114 350.1.13.10 4.2.7.2.686 [id number] [facility] 2022-07-06 11:00:00 2022-07-06 11:00:00 Outpatient R BHUPINDER ARIZMENDI [facility] [id number] [facility] 2022-07-05 00:00:00 2022-07-05 00:00:00 Case Management Winnie Gonzalez [facility] 1.2.840.114 350.1.13.10 4.2.7.2.686 [id number] [facility] 2022-07-03 00:00:00 2022-07-03 00:00:00 Case Management Melisa Beach [facility] 1.2.840.114 350.1.13.10 4.2.7.2.686 [id number] [facility] 2022-06-22 00:00:00 2022-06-22 00:00:00 Telephone Melisa Beach [facility] 1.2.840.114 350.1.13.10 4.2.7.2.686 [id number] [id number] [facility] 2022-06-22 00:00:00 2022-06-22 00:00:00 Case Management Amber Sandoval [facility] 1.2.840.114 350.1.13.10 4.2.7.2.686 [id number] [facility] 2022-06-19 00:00:00 2022-06-19 00:00:00 Telephone Melisa Beach [facility] 1.2.840.114 350.1.13.10 4.2.7.2.686 [id number] [id number] [facility] 2022-05-25 00:00:00 2022-05-25 00:00:00 Case Management Amber Sandoval [facility] 1.2.840.114 350.1.13.10 4.2.7.2.686 [id number] [facility] 2022-05-25 00:00:00 2022-05-25 00:00:00 Case Management Melisa Beach [facility] 1.2.840.114 350.1.13.10 4.2.7.2.686 [id number] [facility] 2022-05-19 00:00:00 2022-05-19 00:00:00 Case Management Melisa Beach [facility] 1.2.840.114 350.1.13.10 4.2.7.2.686 [id number] [id number] [facility] 2022-05-11 00:00:00 2022-05-11 00:00:00 Case Management Melisa Beach [facility] 1.2.840.114 350.1.13.10 4.2.7.2.686 [id number] [facility] 2022-05-04 13:10:13 2022-05-04 23:59:00 Outpatient R BHUPINDER ARIZMENDI [facility] [id number] [facility] 2022-05-04 13:10:13 2022-05-04 23:59:00 Hospital Encounter Bhupinder Arizmendi [facility] 1.2.840.114 350.1.13.10 4.2.7.2.686 [id number] [facility] 2022-05-04 11:30:00 2022-05-04 12:52:20 Office Visit Bhupinder Arizmendi [facility] 1..114 350.1.13.10 4.2.7.2.686 [id number] [id number] [facility] 2022-05-04 00:00:00 2022-05-04 00:00:00 Case Management Lisa Winnie L [facility] 1.2.114 350.1.13.10 4.2.7.2.686 [id number] [facility] 2022-05-04 00:00:00 2022-05-04 00:00:00 Case Management Melisa Beach [facility] 1.2.114 350.1.13.10 4.2.7.2.686 [id number] [facility] 2022-05-04 00:00:00 2022-05-04 00:00:00 Case Management Amber Sandoval [facility] 1.20.114 350.1.13.10 4.2.7.2.686 [id number] [facility] 2022-05-03 00:00:00 2022-05-03 00:00:00 Case Management Melisa Beach Melinda [facility] 1.0.114 350.1.13.10 4.2.7.2.686 [id number] [facility] 2022-05-02 00:00:00 2022-05-02 00:00:00 Telephone Franki OlegarioMelisa marte [facility] 1.2.114 350.1.13.10 4.2.7.2.686 [id number] [id number] [facility] 2022-04-24 00:00:00 2022-04-24 00:00:00 Telephone Melisa Beach [facility] 1.2.840.114 350.1.13.10 4.2.7.2.686 [id number] [facility] 2022-04-20 00:00:00 2022-04-20 00:00:00 Case Management Melisa Beach [facility] 1.2.840.114 350.1.13.10 4.2.7.2.686 [id number] [id number] [facility] 2022-04-20 00:00:00 2022-04-20 00:00:00 Case Management Lori Deontetessa [facility] 1.2.840.114 350.1.13.10 4.2.7.2.686 [id number] [id number] [facility] 2022-04-19 11:00:00 2022-04-19 11:00:00 Outpatient KRYSTA VALENCIA [facility] [id number] [facility] 2022-04-19 00:00:00 2022-04-19 00:00:00 Case Management Melisa Beach [facility] 1.2840.114 350.1.13.10 4.2.7.2.686 [id number] [facility] 2022-04-18 00:00:00 2022-04-18 00:00:00 Case Management Melisa Beach [facility] 1.2.840.114 350.1.13.10 4.2.7.2.686 [id number] [facility] 2022-04-18 00:00:00 2022-04-18 00:00:00 Case Management Melisa Beach [facility] 1.2.840.114 350.1.13.10 4.2.7.2.686 [id number] [facility] 2022-04-17 00:00:00 2022-04-17 00:00:00 Case Management Melisa Beach [facility] 1.2.840.114 350.1.13.10 4.2.7.2.686 [id number] [facility] 2022-04-14 00:00:00 2022-04-14 00:00:00 Case Management Melisa Beach [facility] 1.2.840.114 350.1.13.10 4.2.7.2.686 [id number] [facility] 2022-04-14 00:00:00 2022-04-14 00:00:00 Telephone Melisa [place] [facility] 1.2.840.114 350.1.13.10 4.2.7.2.686 [id number] 089 [id number] [facility] 2022-04-12 08:00:00 2022-04-12 08:00:00 Outpatient YLUISA FLANNERY [facility] [id number] [facility] 2022-04-11 00:00:00 2022-04-11 00:00:00 Case Management [place]isa [place] [facility] 1.2.840.114 350.1.13.10 4.2.7.2.686 [id number] [facility] 2022-04-10 00:00:00 2022-04-10 00:00:00 Case Management [place]isa [place] [facility] 1.2.840.114 350.1.13.10 4.2.7.2.686 [id number] [id number] [facility] 2022-04-07 00:00:00 2022-04-07 00:00:00 Case Management [place]isa [place] [facility] 1.2.840.114 350.1.13.10 4.2.7.2.686 [id number] [id number] [facility] 2022-04-06 11:45:00 2022-04-06 12:00:00 [employer] Executive Visit [facility] Riddhi Rabago [facility] 1.2.840.114 350.1.13.10 4.2.7.2.686 [id number] [facility] 2022-04-06 11:45:00 2022-04-06 11:45:00 Outpatient R RIDDHI RABAGO [facility] [id number] [facility] 2022-04-06 09:00:00 2022-04-06 10:00:00 Office Visit Bhupinder Arizmendi [facility] 1.2.840.114 350.1.13.10 4.2.7.2.686 [id number] [id number] [facility] 2022-04-06 00:00:00 2022-04-06 00:00:00 Case Management Lori [facility] 1.2.840.114 350.1.13.10 4.2.7.2.686 [id number] [id number] [facility] 2022-04-06 00:00:00 2022-04-06 00:00:00 Case Management Lori [facility] 1.2.840.114 350.1.13.10 4.2.7.2.686 [id number] [facility] 2022-03-24 00:00:00 2022-03-24 00:00:00 Telephone Winnie Gonzalez [facility] 1.2.840.114 350.1.13.10 4.2.7.2.686 [id number] [facility] Notes Date/Time Note Provider Source 2023-07-11 16:10:20 PBW1CPHDA4LTKqmvTfgF //xv73xOSg0 J2mtqHhyXbcR0Im8RxIR06zPnalykGk v15570-13-13Q05:10:20 [facility] reports that patient successfully enrolled in their program in Nov but failed to complete his 6 mo attestation during the following May. [facility] confirms that the last mediation shipment was made on 06/28/[address] [place] [address]. [employer] called the phone number provided by [facility] with the intention of getting Mr. Burr back into medical care. The man who answered said that "this is not his phone. It's mine now!" He hung up at that point.Chart reviewed for TRG audit of [facility] Medical Case Management services for 2022 service period. 60 min taken (not billable) 40247-3Gsjinctof encounter DvgpPO3996-73-98V22:17:23Teleph one encounter NoteTXT1.2.840.867540.1.13.104. 2.7.2.864355|[id number] ble for patient dfve81559-6SvcvNYJSSZDDIRIYjbnh tted C-CDA narrative [id number] Beach RN[address] ZyzpTgjsmhvzoZsfaytewqLFNM76130 62556SVUSEFMQCCILWDAAZDJMGM3381 -04-24T16:17:231.2.840.975679.1 .72.3.15|1.2.840.339195.1.13.10 4.2.7.2.727879_[id number] Melisa Beach RN [facility] 2023-06-28 12:30:40 aN/cDtx5y+9rDKQBM9a/ mn6MFXtoApC Ai3u3ueegPkGXVOhxiHQwdU8biaC223 yD7037-62-90L56:30:40 RF request for Symedmundo from [facility] - approved with 2 rfsLast visit with me was in 05/11No future appts scheduledHe is not longer enrolled on the programWill ask the clinic PSS contact him to schedule a follow up appt - they should notify the caser up know when he reach him 40732-5Zfqfckipi encounter VzlyUB9633-47-15Y57:37:41Teleph one encounter NoteTXT1.2.840.913466.1.13.104. 2.7.2.885830|[id number] [facility] for patient zutg51224-2LghaPDTLXSVSSQXVzicb tted C-CDA narrative text[address] AbmyRarbfdhfbUlpezwiwePFRJ90240 58241FVNHKIALDBTRWEXVTSJCIF4746 -04-11T12:37:411.2.840.193817.1 .72.3.15|1.2.840.514317.1.13.10 4.2.7.2.727879_[id number] [facility] 2023-04-06 14:44:15 W/5fLCPRf7mtTnb2hMTZ B4A1ipO7bJ9 074WM8AMYyUpISP3TGxvmsCznIFK38j Aa7985-86-19P49:44:15 REFILL (Already sent to the pharmacy)Provider: Sushila Chakraborty'christian phone number: [phone] (home)Pharmacy: [facility] [address] Rexhjdpsba: vbutifsfq-xraw-gyxlx-tenof ala (SYMTUZA)Strength: [phone] mg TabDirections: Take 1 by mouth once daily with food. PLEASE CALL CLINIC TO SCHEDULE NEXT APPOINTMENT.Quantity: 30 Tablets with 2 RefillsLast filled: UnknownLast office visit: 05/04/2022Next scheduled visit: No future visits are scheduled. 65991-3Lvpjnizfa encounter MkriDV5895-11-89O91:49:37Teleph one encounter NoteTXT1.2.840.812790.1.13.104. 2.7.2.135410|[id number] ble for patient dxwj45892-9LlybCZMFFZKBLOEDjmkm tted C-CDA narrative [id number] M [place] [address]TXTX[address] 51897QZDZFTXBORWCYLMRGHEFKM7278 -01-19T14:49:371.2.840.181041.1 .72.3.15|1.2.840.787335.1.13.10 4.2.7.2.727879_[id number] Beatris Denny [facility] 2022-10-12 16:39:43 ojjKVHimhIY5+6OxinMp XbHqdhFT8SR BnL3WYfYWE6G//d4JDIfxJ6XsUA2/Ka eW7622-00-20G70:39:43 [facility] contacted me for refill of SymtuzaLast seen in 05/11The caser up have been trying to reach including yesterday. They sent a text Will refill Symtu[place] [address]-1Pqqrggqhn encounter JdchUD9310-80-27N00:41:52Teleph one encounter NoteTXT1.2.840.200398.1.13.104. 2.7.2.261430|[id number] ble for patient [address]TXTX[address] 79041RKBKOBPJYCKKGKNWJKATXC5894 -07-27T16:41:521.2.840.108093.1 .72.3.15|1.2.840.307753.1.13.10 4.2.7.2.727879_[id number] [facility] 2022-10-11 09:25:36 wgVE+WJQ66Ru4YMX9sw/ hfUOJa3AeQH 4lS8n9VD1IyCMNxYrD1haruooBwzJ1A LI4832-44-36Q18:25:36 Attempted phone contact, however phone is not accepting calls. Sent text requesting a return call in order to check in with client and reschedule ID. 30 min taken 25706-5Hadhwdrcu encounter RmpeEJ8474-95-09R20:28:33Teleph one encounter NoteTXT1.2.840.282097.1.13.104. 2.7.2.302010|[id number] ble for patient twjo55410-4NtdyJI840681026Ykxwz kelsy Beach RN[address] OdreUbsgmrfwoIyrfppblmSPUA61687 42997KXRFWDNRPCICQXDFRFVFAX1517 -07-26T09:28:331.2.840.157489.1 .72.3.15|1.2.840.126534.1.13.10 4.2.7.2.727879_[id number] Melisa Beach RN [facility] 2022-05-02 15:54:00 ngcdvwvTg3HAWT3s/yDY nsCDaAbG3E+ oiWHs4F6U3EhmP2De4wIMynoRJIuIZh in3158-97-24E32:54:00 CEDRICK BYNUM phoned client. He confirms that he has been to the [facility] twice since he was referred. Client reports that [facility] provider diagnosed him with PTSD and Bipolar d/o. [facility] also had Mr. Burr put on the list for Section 8 Housing.Client reports that his landlord is still asking him to leave the apartment and refuses to renew the month to month lease. Mr. Burr and his common-law , Jaleesa, refuse to leave. He states that he may need to return to his mother's house in [place].CM reminded client that we require a insurance termination letter to officially enroll him in the [employer] program. Mr. Burr said that he will check with his mother to see if letter has arrived, then he will call CM back.Client was reminded of 05/04 ID f/u. He replied that he will come as long as he has not returned to [place]. He was asked to cancel if this occurs. 60 min taken 47717-0Uygafbkro encounter MglcVP9445-61-06O62:06:00Teleph one encounter NoteTXT1.2.840.541865.1.13.104. 2.7.2.964459|[id number] ble for patient lbfb77140-2SaxgCJDHPOYKIQWMrebd tted C-CDA narrative [id number] Beach RN[address] VzmuRjmpmhabqVipngbdkrCYKQ80744 19690AOXWSGCNSBJMSRXFULQPMV1842 -02-14T1:06:001.2.840.958299.1 .72.3.15|1.2.840.629101.1.13.10 4.2.7.2.727879_[id number] Melisa Beach RN [facility]
--- NOTE | 2023-07-13 17:58 | ER ---
Nurse's Notes [facility] Name: Hernandez Burr Age: 47 yrs Sex: Male : 1975 Arrival Date: 07/13/2023 Time: 17:27 Bed 9 Private MD: Diagnosis: Superficial lacerations to right second and third digits Presentation: 07/12 17:46 Chief complaint: Patient states: "the director sales and trade marketing arrested me about 2 days ago and I am not aa5 sure how I got these (pt points to lacerations to right fingers)". Coronavirus screen: At this time, the client does not indicate any symptoms associated with coronavirus-19. Ebola Screen: Patient denies travel to an Ebola-affected area in the 21 days before illness onset. Complicating Factors: There are no complicating factors for this patient. Initial Sepsis Screen: Does the patient meet any 2 criteria? No. Patient's initial sepsis screen is negative. Does the patient have a suspected source of infection? No. Patient's initial sepsis screen is negative. Risk Assessment: Do you want to hurt yourself or someone else? Patient reports no desire to harm self or others. Onset of symptoms was June 2023. 17:46 Acuity: KEERTHI 4 aa5 17:46 Method Of Arrival: Ambulatory aa5 Historical: - Allergies: 17:46 NKDA; aa5 17:48 PENICILLINS; aa5 - PMHx: 17:48 None; aa5 - PSHx: 17:48 None; aa5 - Immunization history:: Adult Immunizations unknown. - Infectious Disease History:: Denies. - Social history:: Smoking status: Patient reports the use of cigarette tobacco products, denies chronic smoking, but will smoke occasionally. Screenin:17 [facility] ED Fall Risk Assessment (Adult) History of falling in the last 3 months, tl4 including since admission No falls in past 3 months (0 pts) Confusion or Disorientation No (0 pts) Intoxicated or Sedated No (0 pts) Impaired Gait No (0 pts) Mobility Assist Device Used No (0 pt) Altered Elimination No (0 pt) Score/Fall Risk Level 0 - 2 = Low Risk Oriented to surroundings, Maintained a safe environment, Educated pt \\T\\ family on fall prevention, incl call for assistance when getting out of bed, Assessed \\T\\ reinforced patient's understanding of fall precautions. Abuse screen: Denies threats or abuse. Denies injuries from another. Nutritional screening: No deficits noted. Tuberculosis screening: No symptoms or risk factors identified. Assessment: 18:14 General: Appears in no apparent distress. Behavior is calm, cooperative. Pain: tl4 Complains of pain in right hand. Neuro: Level of Consciousness is awake, alert, obeys commands, Oriented to person, place, time, situation, Moves all extremities. Full function Gait is steady, Speech is normal. Cardiovascular: Capillary refill < 3 seconds Patient's skin is warm and dry. Respiratory: Airway is patent Respiratory effort is even, unlabored, Respiratory pattern is regular, symmetrical, Breath sounds are clear bilaterally. GI: No signs and/or symptoms were reported involving the gastrointestinal system. : No signs and/or symptoms were reported regarding the genitourinary system. EENT: No signs and/or symptoms were reported regarding the EENT system. Derm: No signs and/or symptoms reported regarding the dermatologic system. Musculoskeletal: superficial laceration with scabs to right 2nd and 3rd digit. 18:19 Injury Description: Laceration is not bleeding. tl4 Vital Signs: 17:46 BP 144 / 86; Pulse 102; Resp 18 S; Temp 97.8(TE); Pulse Ox 100% on R/A; aa5 18:17 BP 129 / 80; Pulse 85; Resp 16; Temp 98.3(O); Pulse Ox 98% on R/A; Pain 8/10; tl4 18:17 Pain Scale: Adult tl4 ED Course: 17:30 Patient arrived in ED. mg5 17:42 Scott Latham MD is Attending Physician. rt 17:46 Arm band placed on. aa5 17:47 Triage completed. aa5 18:01 Jignesh John, BULMARO is Primary Nurse. tl4 18:18 Patient has correct armband on for positive identification. Bed in low position. Call tl4 light in reach. Side rails up X 1. Provided Education on: ED process. Client placed on continuous cardiac and pulse oximetry monitoring. NIBP monitoring applied. Door closed. Noise minimized. Lights dimmed. Moved to private room. 18:18 No provider procedures requiring assistance completed. Patient did not have IV access tl4 during this emergency room visit. Wound care: to laceration was cleaned with dressed with band aid, Bacitracin applied to affected areas. Administered Medications: 18:13 Drug: Mupirocin Topical Ointment 2 % 1 application Topical once Route: Topical; Site: tl4 affected area; Medication: 18:17 VIS not applicable for this client. tl4 Outcome: 17:58 Discharge ordered by . rt 18:19 Discharged to home ambulatory, tl4 18:19 Condition: good 18:19 Discharge instructions given to patient, Instructed on discharge instructions, follow up and referral plans. Demonstrated understanding of instructions, follow-up care, 18:20 Patient left the ED. tl4 Signatures: Brit De León, RN RN aa5 Scott Latham MD MD rt Anjana Jacques mg5 Jignesh John RN RN tl4
--- NOTE | 2023-07-13 17:58 | EDPHYS ---
Physician Documentation [facility] Name: Hernandez Burr Age: 47 yrs Sex: Male : 1975 Arrival Date: 07/13/2023 Time: 17:27 Bed 9 Private MD: ED Physician Scott Latham Historical: - Allergies: 07/12 17:46 NKDA; aa5 17:48 PENICILLINS; aa5 - PMHx: 17:48 None; aa5 - PSHx: 17:48 None; aa5 - Immunization history:: Adult Immunizations unknown. - Infectious Disease History:: Denies. - Social history:: Smoking status: Patient reports the use of cigarette tobacco products, denies chronic smoking, but will smoke occasionally. Vital Signs: 17:46 BP 144 / 86; Pulse 102; Resp 18 S; Temp 97.8(TE); Pulse Ox 100% on R/A; aa5 18:17 BP 129 / 80; Pulse 85; Resp 16; Temp 98.3(O); Pulse Ox 98% on R/A; Pain 8/10; tl4 18:17 Pain Scale: Adult tl4 MDM: 17:50 Patient medically screened. rt Administered Medications: 18:13 Drug: Mupirocin Topical Ointment 2 % 1 application Topical once Route: Topical; Site: tl4 affected area; Disposition Summary: 07/13/23 17:58 Discharge Ordered Notes: Location: Home rt Problem: new rt Symptoms: are unchanged rt Condition: Stable rt Diagnosis - Superficial lacerations to right second and third digits rt Followup: rt - With: Private Physician - When: 2 - 3 days - Reason: Discharge Instructions: - Discharge Summary Sheet rt - Nonsutured Laceration Care rt Forms: - Medication Reconciliation Form rt - Antibiotic Education rt - Prescription Opioid Use rt - Patient Portal Instructions rt - Leadership Thank You Letter rt Signatures: Brit De León RN RN aa5 Scott Latham MD MD rt Jignesh John RN RN tl4
[2023-07-13] MEDS ORDERED: MUPIROCIN 2% OINT 22GM TUBE TOP ONE (18:02)
[2023-07-13 18:38] VITALS: BP 129/80; TEMP 98.3; O2SAT 98
== END 2023-07-13 18:20 | disposition home or self-care (01) ==
LOC: ER 17:27
DX: S61.210A Laceration without foreign body of right index finger without damage to nail, initial encounter (principal); S61.212A Laceration without foreign body of right middle finger without damage to nail, initial encounter; Z88.0 Allergy status to penicillin

== ENCOUNTER 2024-03-28 06:46 | Emergency (ER) | payer OTHER ==
--- OUTSIDE RECORDS SUMMARY | 2024-03-28 06:49 | XMS REPORT | Continuity of Care Document ---
Author Name Unknown Address [address] [facility] [address] [place] [address] [facility] thconnect Address [address] [facility] [place] [address] Care Team Providers Care Cost Accounting Clerk Name Role Phone Joyce Chambers Primary Care Physician David Saldivar RN Attending Clinician UnavailBHUPINDER Chen Attending Clinician Unavailable Bhupinder Palm Attending Clinician [phone] [facility] Attending Clinician Unavailable Bhupinder Palm Attending Clinician [phone] Melisa Beach RN Attending Clinician Unava Winnie Barcenas LVN Attending Clinician UnaAmber Mary MA Attending Clinician Unava Melisa Pollard RN Attending Clinician UnaSabrina Griffith MA Attending Clinician UnavailCelso Awad MA Attending Clinician UnavailSASHA Jacob Attending Clinician Unavailable KRYSTA HOWELL Attending Clinician Unavailable YULISA INTERIANO Attending Clinician Unavailable Riddhi Rabago MD Attending Clinician RIDDHI RABAGO Attending Clinician Unavailable Payers Payer Name Policy Type Policy Number Effective Date Expirati on Date Source Problems Condition Name Condition Details Condition Category Status Onset Date Resolution Date Last Treatment Date Treating Clinician Comments Source Obesity (BMI 30-39.9) Obesity (BMI 30-39.9) Disease Resolve d 8-11 00:00: 00 2022-05-04 00:00:00 2022-05-04 15:38:22 [facility] Allergies, Adverse Reactions, Alerts Allergy Name Allergy Type Status Severity Reaction(s) Onset Date Inactive Date Treating Clinician Comments Source none (Not Checked) Propensi ty to adverse reaction to drug Active 6-11 00:00: 00 Tommy Chambers Penicill ins Propensi ty to adverse reaction s Active Other - See comments 04-06 00:00: 00 [facility] PENICILL INS Drug Class Active Other-Cmnt 04-06 00:00: 00 [facility] NO KNOWN ALLERGIE S Drug Class Active [facility] Social History Social Habit Start Date Stop Date Quantity Comments Source History of tobacco use Cigarette Smoker [facility] Gender identity [facility] of Social function 2023-08-09 00:00:00 2023-08-09 00:00:00 [facility] Alcoholic beverage intake 2023-08-09 00:00:00 2023-08-09 00:00:00 Lifetime non-drinker (finding) [facility] Exposure to SARS-CoV-2 (event) 2022-04-24 00:00:00 2022-05-04 11:45:00 Not sure [facility] Alcohol intake 2022-05-04 00:00:00 2022-05-04 00:00:00 Lifetime non-drinker (finding) [facility] Tobacco use and exposure 2022-04-06 00:00:00 2022-04-06 00:00:00 Smokeless tobacco non-user [facility] Sex assigned at 1975 00:00:00 1975 00:00:00 [facility] Smoking Status Start Date Stop Date Source Tobacco smoking consumption unknown [facility] Smokes tobacco daily 2022-04-06 00:00:00 [facility] Medications Ordered Medication Name Filled Medication Name Start Date Stop Date Current Medication? Ordering Clinician Indication Dosage Frequency Signature (SIG) Comments Components Source SYMTUZA 800-150-200 -10 mg Tab 2024-1 1-19 00:00: 00 Yes [id number] TAKE 1 TABLET BY MOUTH EVERY DAY WITH FOOD [facility] ibuprofen 800 mg tablet 2023-0 6-11 00:00: 00 Yes 1mg Tommy Chambers SYMTUZA 800-150-200 -10 mg Tab 2023-0 5-23 00:00: 00 02-04 00:00 :00 No [id number] TAKE ONE TABLET BY MOUTH DAILY WITH FOOD [facility] SYMTUZA 800-150-200 -10 mg Tab 2023-0 4-11 00:00: 00 08-08 00:00 :00 No [id number] TAKE ONE TABLET BY MOUTH DAILY WITH FOOD [facility] darunavir-c obi-emtri-t enof ala (SYMTUZA) 800-150-200 -10 mg Tab 0 -19 00:00: 00 Yes [id number] TAKE ONE TABLET BY MOUTH DAILY WITH FOOD [facility] SYMTUZA 800-150-200 -10 mg Tab 1 0-20 00:00: 00 04-06 00:00 :00 No [id number] 1 po once daily with foood [facility] SYMTUZA 800-150-200 -10 mg Tab 0 10-12 00:00: 00 Yes [id number] 1 po once daily with foood [facility] lamiVUDine 300 mg tablet 2022-0 2-16 12:05: 01 05-04 00:00 :00 No 300mg Take 300 mg by mouth in the morning. [facility] darunavir ethanolate (PREZISTA) 800 mg tablet 2022-0 2-16 12:04: 55 05-04 00:00 :00 No 800mg Take 800 mg by mouth in the morning. [facility] riTONAvir 100 mg tablet 2022-0 2-16 12:04: 55 05-04 00:00 :00 No 100mg Take 100 mg by mouth in the morning. [facility] tenofovir 300 mg tablet 2022-0 2-16 12:04: 55 05-04 00:00 :00 No 300mg Take 300 mg by mouth in the morning. [facility] risperiDONE (RISPERDAL) 1 mg tablet 04-06 09:40: 29 Yes 1mg Take 1 mg by mouth in the morning and 1 mg in the evening. [facility] FLUoxetine 20 mg tablet 04-06 09:40: 29 Yes 20mg Take 20 mg by mouth in the morning. [facility] ibuprofen 600 mg tablet 04-06 09:40: 29 Yes 600mg Take 600 mg by mouth every 6 (six) hours as needed. [facility] darunavir ethanolate (PREZISTA) 800 mg tablet 04-06 09:40: 05-04 00:00 :00 No 800mg Take 800 mg by mouth in the morning. [facility] riTONAvir 100 mg tablet 04-06 09:40: 05-04 00:00 :00 No 100mg Take 100 mg by mouth in the morning. [facility] tenofovir 300 mg tablet 04-06 09:40: 05-04 00:00 :00 No 300mg Take 300 mg by mouth in the morning. [facility] lamiVUDine 300 mg tablet 04-06 09:40: 29 05-04 00:00 :00 No 300mg Take 300 mg by mouth in the morning. [facility] SYMTUZA 800-150-200 -10 mg Tab 04-06 00:00: 00 10-12 00:00 :00 No [id number] 1 po once daily with foood [facility] Immunizations Ordered Immunization Name Filled Immunization Name Date Status Comments Source Pneumococcal 20 Conjugate, PCV20 (Prevnar 20) 2023-08-09 00:00:00 Completed [facility] TDAP 2023-08-09 00:00:00 Completed SARS-COV-2 COVID-19 VACCINE 12 YRS+, BIVALENT 0.5ML, IM, (MODERNA BOOSTER) 2022-05-04 00:00:00 Completed [facility] SARS-COV-2 COVID-19 VACCINE 12 YRS+, BIVALENT 0.5ML, IM, (MODERNA BOOSTER) 2022-05-04 00:00:00 Completed [facility] SARS-COV-2 COVID-19 VACCINE 12 YRS+, BIVALENT 0.5ML, IM, (MODERNA BOOSTER) 2022-05-04 00:00:00 Completed [facility] SARS-COV-2 COVID-19 VACCINE 12 YRS+, BIVALENT 0.5ML, IM, (MODERNA BOOSTER) 2022-05-04 00:00:00 Completed [facility] SARS-COV-2 COVID-19 VACCINE 12 YRS+, BIVALENT 0.5ML, IM, (MODERNA BOOSTER) 2022-05-04 00:00:00 Completed [facility] SARS-COV-2 COVID-19 VACCINE 12 YRS+, BIVALENT 0.5ML, IM, (MODERNA BOOSTER) 2022-05-04 00:00:00 Completed [facility] SARS-COV-2 COVID-19 VACCINE 12 YRS+, BIVALENT 0.5ML, IM, (MODERNA BOOSTER) 2022-05-04 00:00:00 Completed [facility] SARS-COV-2 COVID-19 VACCINE 12 YRS+, BIVALENT 0.5ML, IM, (MODERNA BOOSTER) 2022-05-04 00:00:00 Completed [facility] SARS-COV-2 COVID-19 VACCINE 12 YRS+, BIVALENT 0.5ML, IM, (MODERNA BOOSTER) 2022-05-04 00:00:00 Completed [facility] SARS-COV-2 COVID-19 VACCINE 12 YRS+, BIVALENT 0.5ML, IM, (MODERNA BOOSTER) 2022-05-04 00:00:00 Completed [facility] SARS-COV-2 COVID-19 VACCINE 12 YRS+, BIVALENT 0.5ML, IM, (MODERNA BOOSTER) 2022-05-04 00:00:00 Completed [facility] SARS-COV-2 COVID-19 VACCINE 12 YRS+, BIVALENT 0.5ML, IM, (MODERNA BOOSTER) 2022-05-04 00:00:00 Completed [facility] SARS-COV-2 COVID-19 VACCINE 12 YRS+, BIVALENT 0.5ML, IM, (MODERNA BOOSTER) 2022-05-04 00:00:00 Completed [facility] SARS-COV-2 COVID-19 VACCINE 12 YRS+, BIVALENT 0.5ML, IM, (MODERNA BOOSTER) 2022-05-04 00:00:00 Completed [facility] SARS-COV-2 COVID-19 VACCINE 12 YRS+, BIVALENT 0.5ML, IM, (MODERNA) 2022-05-04 00:00:00 Completed [facility] SARS-COV-2 COVID-19 VACCINE 12 YRS+, BIVALENT 0.5ML, IM, (MODERNA) 2022-05-04 00:00:00 Completed [facility] SARS-COV-2 COVID-19 VACCINE 12 YRS+, BIVALENT 0.5ML, IM, (MODERNA) 2022-05-04 00:00:00 Completed [facility] SARS-COV-2 COVID-19 VACCINE 12 YRS+, BIVALENT 0.5ML, IM, (MODERNA) 2022-05-04 00:00:00 Completed [facility] SARS-COV-2 COVID-19 VACCINE 12 YRS+, BIVALENT 0.5ML, IM, (MODERNA) 2022-05-04 00:00:00 Completed [facility] SARS-COV-2 COVID-19 VACCINE 12 YRS+, BIVALENT 0.5ML, IM, (MODERNA) 2022-05-04 00:00:00 Completed [facility] SARS-COV-2 COVID-19 VACCINE 12 YRS+, BIVALENT 0.5ML, IM, (MODERNA) 2022-05-04 00:00:00 Completed [facility] SARS-COV-2 COVID-19 VACCINE 12 YRS+, BIVALENT 0.5ML, IM, (MODERNA-BLUE TOP) 2022-05-04 00:00:00 Completed [facility] SARS-COV-2 COVID-19 VACCINE 12 YRS+, BIVALENT 0.5ML, IM, (MODERNA-BLUE TOP) 2022-05-04 00:00:00 Completed [facility] SARS-COV-2 COVID-19 VACCINE 12 YRS+, BIVALENT 0.5ML, IM, (MODERNA-BLUE TOP) 2022-05-04 00:00:00 Completed [facility] SARS-COV-2 COVID-19 VACCINE 12 YRS+, BIVALENT 0.5ML, IM, (MODERNA-BLUE TOP) 2022-05-04 00:00:00 Completed [facility] SARS-COV-2 COVID-19 VACCINE 12 YRS+, BIVALENT 0.5ML, IM, (MODERNA-BLUE TOP) 2022-05-04 00:00:00 Completed [facility] SARS-COV-2 COVID-19 VACCINE 12 YRS+, BIVALENT 0.5ML, IM, (MODERNA-BLUE TOP) 2022-05-04 00:00:00 Completed [facility] SARS-COV-2 COVID-19 VACCINE 12 YRS+, BIVALENT 0.5ML, IM, (MODERNA-BLUE TOP) 2022-05-04 00:00:00 Completed [facility] SARS-COV-2 COVID-19 VACCINE 12 YRS+, BIVALENT 0.5ML, IM, (MODERNA-BLUE TOP) 2022-05-04 00:00:00 Completed [facility] SARS-COV-2 COVID-19 VACCINE 12 YRS+, BIVALENT 0.5ML, IM, (MODERNA-BLUE TOP) 2022-05-04 00:00:00 Completed [facility] SARS-COV-2 COVID-19 VACCINE 12 YRS+, BIVALENT 0.5ML, IM, (MODERNA-BLUE TOP) 2022-05-04 00:00:00 Completed [facility] SARS-COV-2 COVID-19 VACCINE 12 YRS+, BIVALENT 0.5ML, IM, (MODERNA-BLUE TOP) 2022-05-04 00:00:00 Completed [facility] SARS-COV-2 COVID-19 VACCINE 12 YRS+, BIVALENT 0.5ML, IM, (MODERNA-BLUE TOP) 2022-05-04 00:00:00 Completed [facility] SARS-COV-2 COVID-19 VACCINE 12 YRS+, BIVALENT 0.5ML, IM, (MODERNA-BLUE TOP) 2022-05-04 00:00:00 Completed SARS-COV-2 COVID-19 VACCINE 12 YRS+, BIVALENT 0.5ML, IM, (MODERNA-BLUE TOP) Unknown Completed [facility] SARS-COV-2 COVID-19 VACCINE 12 YRS+, BIVALENT 0.5ML, IM, (MODERNA-BLUE TOP) [facility]-19 VACCINE 12 YRS+, BIVALENT 0.5ML, IM, (MODERNA-BLUE TOP) Unknown Completed [facility] SARS-COV-2 COVID-19 VACCINE 12 YRS+, BIVALENT 0.5ML, IM, (MODERNA-BLUE TOP) Unknown Completed [facility] SARS-COV-2 COVID-19 VACCINE 12 YRS+, BIVALENT 0.5ML, IM, (MODERNA-BLUE TOP) [facility] SARS-COV-2 COVID-19 VACCINE 12 YRS+, BIVALENT 0.5ML, IM, (MODERNA-BLUE TOP) Unknown Completed [facility] SARS-COV-2 COVID-19 VACCINE 12 YRS+, BIVALENT 0.5ML, IM, (MODERNA-BLUE TOP) Unknown Completed [facility] SARS-COV-2 COVID-19 VACCINE 12 YRS+, BIVALENT 0.5ML, IM, (MODERNA-BLUE TOP) Unknown Completed [facility] SARS-COV-2 COVID-19 VACCINE 12 YRS+, BIVALENT 0.5ML, IM, (MODERNA-BLUE TOP) Unknown Completed [facility] SARS-COV-2 COVID-19 VACCINE 12 YRS+, BIVALENT 0.5ML, IM, (MODERNA-BLUE TOP) Unknown Completed [facility] SARS-COV-2 COVID-19 VACCINE 12 YRS+, BIVALENT 0.5ML, IM, (MODERNA-BLUE TOP) Unknown Completed [facility] SARS-COV-2 COVID-19 VACCINE 12 YRS+, BIVALENT 0.5ML, IM, (MODERNA-BLUE TOP) Unknown Completed [facility] Pneumococcal 20 Conjugate, PCV20 (Prevnar 20) Unknown Completed [facility] TDAP Unknown Completed [facility] SARS-COV-2 COVID-19 VACCINE 12 YRS+, BIVALENT 0.5ML, IM, (MODERNA-BLUE TOP) Unknown Completed [facility] Pneumococcal 20 Conjugate, PCV20 (Prevnar 20) Unknown Completed [facility] TDAP Unknown Completed [facility] Vital Signs Vital Name Observation Time Observation Value Comments S ricarda Systolic blood pressure 2023-08-09 15:22:00 119 mm[Hg] [facility] Diastolic blood pressure 2023-08-09 15:22:00 80 mm[Hg] [facility] Heart rate 2023-08-09 15:22:00 76 /min [facility] Body temperature 2023-08-09 15:22:00 36.06 Emy [facility] Respiratory rate 2023-08-09 15:22:00 18 /min [facility] Body height 2023-08-09 15:22:00 165.1 cm [facility] Body weight 2023-08-09 15:22:00 69.4 kg [facility] BMI 2023-08-09 15:22:00 25.46 kg/m2 [facility] Oxygen saturation in Arterial blood by Pulse oximetry 2023-08-09 15:22:00 98 /min [facility] Systolic blood pressure 2022-05-04 17:53:00 136 mm[Hg] [facility] Diastolic blood pressure 2022-05-04 17:53:00 81 mm[Hg] [facility] Heart rate 2022-05-04 17:53:00 101 /min [facility] Body temperature 2022-05-04 17:52:00 36.33 Emy [facility] Respiratory rate 2022-05-04 17:52:00 18 /min [facility] Body height 2022-05-04 17:52:00 165.1 cm [facility] Body weight 2022-05-04 17:52:00 73.029 kg [facility] BMI 2022-05-04 17:52:00 26.79 kg/m2 [facility] Oxygen saturation in Arterial blood by Pulse oximetry 2022-05-04 17:52:00 98 /min [facility] Systolic blood pressure 2022-04-06 15:43:00 124 mm[Hg] [facility] Diastolic blood pressure 2022-04-06 15:43:00 90 mm[Hg] [facility] Heart rate 2022-04-06 15:43:00 102 /min [facility] Body temperature 2022-04-06 15:31:00 36.94 Emy [facility] Respiratory rate 2022-04-06 15:31:00 18 /min [facility] Body height 2022-04-06 15:31:00 152.4 cm [facility] Body weight 2022-04-06 15:31:00 77.111 kg [facility] BMI 2022-04-06 15:31:00 33.20 kg/m2 [facility] Oxygen saturation in Arterial blood by Pulse oximetry 2022-04-06 15:31:00 98 /min [facility] Respiratory Rate 2023-08-28 13:18:00 18.00 /min Tommy Chambers BP Systolic 2023-08-28 13:18:00 120 mm[Hg] Step hen Aminta Chambers BP Diastolic 2023-08-28 13:18:00 77 mm[Hg] Yogi phen Aminta Chambers Weight Measured 2023-08-28 13:18:00 157.80 pounds Tommy Chambers Height Measured 2023-08-28 13:18:00 64.57 inches Tommy Chambers Body Temperature 2023-08-28 13:18:00 97.20 degrees Tommy Chambers Heart Rate 2023-08-28 13:18:00 86.00 /min Lalitha Chambers Procedures Procedure Date / Time Performed Performing Clinician Source TDAP VACCINE, >11 YRS, IM 2023-08-09 16:20:38 [facility] PNEUMOCOCCAL 20 CONJUGATE (PREVNAR 20) VACCINE 2023-08-09 16:20:38 [facility] SARS-COV-2 COVID-19 VACCINE 12 YRS+, BIVALENT 0.5ML, IM (MODERNA BOOSTER) 2022-05-04 18:30:27 [facility] Encounters Start Date/Time End Date/Time Encounter Type Admission Type Attending Clinicians Care Facility Care Department Encounter ID Source 2022-05-26 17:19:00 Inpatient [facility] [id number] 11 [facility] 2024-02-06 00:00:00 2024-02-11 12:18:01 Case Management David Saldivar Jimmie L [facility] 1.2.840.114 350.1.13.10 4.2.7.2.686 [id number] [facility] 2024-02-07 10:00:00 2024-02-07 10:00:00 Outpatient R BHUPINDER [facility] [id number] [facility] 2024-02-05 00:00:00 2024-02-05 14:56:40 Refill Bhupinder Arizmendi [facility] ([facility] 1.2.840.114 350.1.13.10 4.2.7.2.686 [id number] [facility] 2023-08-28 13:15:52 2023-08-28 13:15:52 Outpatient SFA [id number] [id number] Tommy Chambers 2023-08-28 00:00:00 2023-08-28 00:00:00 Outpatient Visit SFA [id number] Tommy Chambers 2023-08-09 11:30:00 2023-08-09 11:45:00 Ophthalmology Surgical Technician Visit [facility] Ugo Bhupinder [facility] 1.284.114 350.1.13.10 4.2.7.2.686 [id number] [facility] 2023-08-09 10:00:00 2023-08-09 10:30:00 Office Visit Bhupinder Arizmendi [facility] 1.2840.114 350.1.13.10 4.2.7.2.686 [id number] [facility] 2023-08-09 10:00:00 2023-08-09 10:00:00 Outpatient R BHUPINDER [facility] [id number] [facility] 2023-08-09 10:00:00 2023-08-09 10:00:[address] [facility] [id number] [facility] 2023-08-08 00:00:00 2023-08-08 16:12:10 Case Management Melisa Beach [facility] 1.2.840.114 350.1.13.10 4.2.7.2.686 [id number] [facility] 2023-08-06 00:00:00 2023-08-06 12:21:48 Telephone Melisa Beach [facility] 1.2.840.114 350.1.13.10 4.2.7.2.686 [id number] [facility] 2023-08-01 00:00:00 2023-08-02 10:06:24 Telephone Melisa Beach [facility] 1.2.840.114 350.1.13.10 4.2.7.2.686 [id number] [facility] 2023-07-23 00:00:00 2023-07-24 08:42:00 Telephone Melisa Beach [facility] 1.2.840.114 350.1.13.10 4.2.7.2.686 [id number] [facility] 2023-07-24 08:00:00 2023-07-24 08:00:[address] [facility] [id number] [facility] 2023-07-16 00:00:00 2023-07-16 00:00:00 Case Management Melisa Beach [facility] 1.2.840.114 350.1.13.10 4.2.7.2.686 [id number] [facility] 2023-07-11 00:00:00 2023-07-11 00:00:00 Telephone Melisa Beach [facility] 1.2.840.114 350.1.13.10 4.2.7.2.686 [id number] [facility] 2023-06-28 00:00:00 2023-06-28 00:00:00 [facility] 1.2.840.114 350.1.13.10 4.2.7.2.686 [id number] [facility] 2023-04-06 00:00:00 2023-04-06 00:00:00 [facility] 1.2.840.114 350.1.13.10 4.2.7.2.686 [id number] [facility] 2022-11-22 00:00:00 2022-11-22 00:00:00 Case Management Franki Melvin [facility] 1.2.840.114 350.1.13.10 4.2.7.2.686 [id number] [facility] 2022-10-12 00:00:00 2022-10-12 00:00:00 [facility] 1.2.840.114 350.1.13.10 4.2.7.2.686 [id number] [facility] 2022-10-11 00:00:00 2022-10-11 00:00:[address] [facility] 1.2.840.114 350.1.13.10 4.2.7.2.686 [id number] [facility] 2022-09-08 00:00:00 2022-09-08 00:00:00 Telephone Winnie Gonzalez [facility] 1.2.840.114 350.1.13.10 4.2.7.2.686 [id number] [facility] 2022-08-17 00:00:00 2022-08-17 00:00:00 Case Management Melisa Beach [facility] 1.2.840.114 350.1.13.10 4.2.7.2.686 [id number] [facility] 2022-08-17 00:00:00 2022-08-17 00:00:00 Case Management [facility] 1.2.840.114 350.1.13.10 4.2.7.2.686 [id number] [facility] 2022-08-03 00:00:00 2022-08-03 00:00:00 Case Management Melisa Beach [facility] 1.2.840.114 350.1.13.10 4.2.7.2.686 [id number] [facility] 2022-08-03 00:00:00 2022-08-03 00:00:00 [facility] 1.2.840.114 350.1.13.10 4.2.7.2.686 [id number] [facility] 2022-08-02 00:00:00 2022-08-02 00:00:00 Case Management Yesi Melisa Orozco [facility] 1.2.840.114 350.1.13.10 4.2.7.2.686 [id number] [facility] 2022-08-01 10:30:00 2022-08-01 10:30:[address] [facility] [id number] [facility] 2022-08-01 00:00:00 2022-08-01 00:00:00 Telephone Franki Hanco Melisa Lawrence [facility] 1.2.840.114 350.1.13.10 4.2.7.2.686 [id number] [facility] 2022-07-28 00:00:00 2022-07-28 00:00:00 Case Management Winnie Gonzalez L [facility] 1.2.840.114 350.1.13.10 4.2.7.2.686 [id number] [facility] 2022-07-27 00:00:00 2022-07-27 00:00:00 Case Management Melisa Beach [facility] 1.2.840.114 350.1.13.10 4.2.7.2.686 [id number] [facility] 2022-07-27 00:00:00 2022-07-27 00:00:00 Case Management Amber Sandoval [facility] 1.2.840.114 350.1.13.10 4.2.7.2.686 [id number] [facility] 2022-07-21 00:00:00 2022-07-21 00:00:00 Telephone Melisa Beach [facility] 1.2.840.114 350.1.13.10 4.2.7.2.686 [id number] [facility] 2022-07-19 00:00:00 2022-07-19 00:00:00 Case Management YesiMelisa L [facility] 1.2.840.114 350.1.13.10 4.2.7.2.686 [id number] [facility] 2022-07-19 00:00:00 2022-07-19 00:00:00 Case Management Sabrina Olivarez [facility] 1.2.840.114 350.1.13.10 4.2.7.2.686 [id number] [facility] 2022-07-13 00:00:00 2022-07-13 00:00:00 Case Management Melisa Beach [facility] 1.2840.114 350.1.13.10 4.2.7.2.686 [id number] [facility] 2022-07-13 00:00:00 2022-07-13 00:00:00 Case Management Sabrina Olivarez [facility] 1.2.840.114 350.1.13.10 4.2.7.2.686 [id number] [facility] 2022-07-13 00:00:00 2022-07-13 00:00:00 Case Management Sabrina Olivarez [facility] 1.2.840.114 350.1.13.10 4.2.7.2.686 [id number] [facility] 2022-07-13 00:00:00 2022-07-13 00:00:00 Case Management DarynSuzien L [facility] 1.2840.114 350.1.13.10 4.2.7.2.686 [id number] [facility] 2022-07-07 00:00:00 2022-07-07 00:00:00 Case Management Melisa Beach [facility] 1.2840.114 350.1.13.10 4.2.7.2.686 [id number] [facility] 2022-07-06 11:00:00 2022-07-06 11:00:[address] [facility] [id number] [facility] 2022-07-05 00:00:00 2022-07-05 00:00:00 Case Management Winnie Gonzalez [facility] 1.2840.114 350.1.13.10 4.2.7.2.686 [id number] [facility] 2022-07-03 00:00:00 2022-07-03 00:00:00 Case Management Melisa Beach [facility] [id number] 350.1.13.10 4.2.7.2.686 [id number] [facility] 2022-06-22 00:00:00 2022-06-22 00:00:00 Telephone Melisa Beach [facility] [id number] 350.1.13.10 4.2.7.2.686 [id number] [id number] [facility] 2022-06-22 00:00:00 2022-06-22 00:00:00 Case Management Lori [facility] 1.2.840.114 350.1.13.10 4.2.7.2.686 [id number] [facility] 2022-06-19 00:00:00 2022-06-19 00:00:00 Telephone Melisa Beach [facility] 1.2.840.114 350.1.13.10 4.2.7.2.686 [id number] [id number] [facility] 2022-05-25 00:00:00 2022-05-25 00:00:00 Case Management Lori [facility] 1.2.840.114 350.1.13.10 4.2.7.2.686 [id number] [facility] 2022-05-25 00:00:00 2022-05-25 00:00:00 Case Management Melisa Beach [facility] 1.2.840.114 350.1.13.10 4.2.7.2.686 [id number] [facility] 2022-05-19 00:00:00 2022-05-19 00:00:00 Case Management Melisa Beach [facility] 1.2.840.114 350.1.13.10 4.2.7.2.686 [id number] [facility] 2022-05-11 00:00:00 2022-05-11 00:00:00 Case Management Melisa Beach [facility] 1.2840.114 350.1.13.10 4.2.7.2.686 [id number] [facility] 2022-05-04 13:10:13 2022-05-04 23:59:00 Outpatient R BHUPINDER [facility] [facility] [id number] [facility] 2022-05-04 13:10:13 2022-05-04 23:59:00 Hospital Encounter [facility] 1.2840.114 350.1.13.10 4.2.7.2.686 [id number] [facility] 2022-05-04 11:30:00 2022-05-04 12:52:20 Office Visit [facility] 1.2.840.114 350.1.13.10 4.2.7.2.686 [id number] [facility] 2022-05-04 00:00:00 2022-05-04 00:00:00 Case Management Winnie Gonzalez [facility] 1.2.840.114 350.1.13.10 4.2.7.2.686 [id number] [facility] 2022-05-04 00:00:00 2022-05-04 00:00:00 Case Management Melisa Beach [facility] 1.2840.114 350.1.13.10 4.2.7.2.686 [id number] [facility] 2022-05-04 00:00:00 2022-05-04 00:00:00 Case [facility] 1.2.840.114 350.1.13.10 4.2.7.2.686 [id number] [facility] 2022-05-03 00:00:00 2022-05-03 00:00:00 Case Management Melisa Beach [facility] 1.2.840.114 350.1.13.10 4.2.7.2.686 [id number] [facility] 2022-05-02 00:00:00 2022-05-02 00:00:00 Telephone Melisa Beach [facility] 1.2.840.114 350.1.13.10 4.2.7.2.686 [id number] [facility] 2022-04-24 00:00:00 2022-04-24 00:00:00 Telephone Melisa Beach [facility] 1.2.840.114 350.1.13.10 4.2.7.2.686 [id number] [facility] 2022-04-20 00:00:00 2022-04-20 00:00:00 Case Management Melisa Beach [facility] 1.2.840.114 350.1.13.10 4.2.7.2.686 [id number] [facility] 2022-04-20 00:00:00 2022-04-20 00:00:00 Case [facility] 1.2.840.114 350.1.13.10 4.2.7.2.686 [id number] [facility] 2022-04-19 11:00:00 2022-04-19 11:00:[address] [facility] [id number] [facility] 2022-04-19 00:00:00 2022-04-19 00:00:00 Case Management Melisa Beach [facility] 1.2.840.114 350.1.13.10 4.2.7.2.686 [id number] 089 [id number] [facility] 2022-04-18 00:00:00 2022-04-18 00:00:00 Case Management Melisa Beach [facility] 1.2.840.114 350.1.13.10 4.2.7.2.686 [id number] [facility] 2022-04-18 00:00:00 2022-04-18 00:00:00 Case Management Melisa Beach [facility] 1.2.840.114 350.1.13.10 4.2.7.2.686 [id number] [facility] 2022-04-17 00:00:00 2022-04-17 00:00:00 Case Management Melisa Beach [facility] 1.2.840.114 350.1.13.10 4.2.7.2.686 [id number] [id number] [facility] 2022-04-14 00:00:00 2022-04-14 00:00:00 Case Management Melisa Beach [facility] 1.2.840.114 350.1.13.10 4.2.7.2.686 [id number] [facility] 2022-04-14 00:00:00 2022-04-14 00:00:00 Telephone Melisa Beach [facility] 1.2.840.114 350.1.13.10 4.2.7.2.686 [id number] [facility] 2022-04-12 08:00:00 2022-04-12 08:00:00 Outpatient R YULISA [facility] [id number] [facility] 2022-04-11 00:00:00 2022-04-11 00:00:00 Case Management Melisa Beach [facility] 1.2840.114 350.1.13.10 4.2.7.2.686 [id number] [facility] 2022-04-10 00:00:00 2022-04-10 00:00:00 Case Management Melisa Beach [facility] 1.2840.114 350.1.13.10 4.2.7.2.686 [id number] [facility] 2022-04-07 00:00:00 2022-04-07 00:00:00 Case Management Melisa Beach [facility] 1.2840.114 350.1.13.10 4.2.7.2.686 [id number] [facility] 2022-04-06 11:45:00 2022-04-06 12:00:00 Ophthalmology Surgical Technician Visit [facility] Riddhi Rabago [facility] 1.20.114 350.1.13.10 4.2.7.2.686 [id number] [facility] 2022-04-06 11:45:00 2022-04-06 11:45:[address] [facility] [id number] [facility] 2022-04-06 09:00:00 2022-04-06 10:00:00 Office Visit Bhupinder Arizmendi [facility] 1.2840.114 350.1.13.10 4.2.7.2.686 [id number] [facility] 2022-04-06 00:00:00 2022-04-06 00:00:00 [facility] 350.1.13.10 4.2.7.2.686 [id number] [facility] 2022-04-06 00:00:00 2022-04-06 00:00:00 Case Management Lori [facility] 1.114 350.1.13.10 4.2.7.2.686 [id number] [facility] 2022-03-24 00:00:00 2022-03-24 00:00:00 Telephone Winnie Gonzalez [facility] 1.114 350.1.13.10 4.2.7.2.686 [id number] [facility]
--- NOTE | 2024-03-28 07:00 | EDPHYS ---
Physician Documentation [facility] Name: Hernandez Burr Age: 48 yrs Sex: Male : 1975 Arrival Date: 03/28/2024 Time: 06:46 Bed 7 Private MD: ED Physician Tristian Honeycutt HPI: 03/28 06:54 This 48 yrs old Male presents to ER via EMS with complaints of Cold Exposure. sp4 06:54 48-year-old male presents with complaint of cold feet. Patient states he is homeless he sp4 spent all night outside.. Historical: - Allergies: 06:50 PENICILLINS; al5 - PMHx: 06:50 None; al5 - PSHx: 06:50 hand surgery; al5 - Immunization history:: Adult Immunizations up to date. - Infectious Disease History:: Denies. - Social history:: Smoking status: Patient reports the use of cigarette tobacco products, denies chronic smoking, but will smoke occasionally. - Family history:: not pertinent. ROS: 06:54 Constitutional: Negative for fever, chills, and weight loss, positive for cold feet sp4 06:54 All other systems are negative, Exam: 06:54 Constitutional: This is a well developed, well nourished patient who is awake, alert, sp4 and in no acute distress. Head/Face: Normocephalic, atraumatic. Eyes: Pupils equal round and reactive to light, extra-ocular motions intact. Lids and lashes normal. Conjunctiva and sclera are not injected. Cornea within normal limits. Periorbital areas with no swelling, redness, or edema. ENT: Nares patent. No nasal discharge, no septal abnormalities noted. Tympanic membranes are normal and external auditory canals are clear. Oropharynx with no redness, swelling, or masses, exudates, or evidence of obstruction, uvula midline. Mucous membranes moist. Neck: Trachea midline, no thyromegaly or masses palpated, and no cervical lymphadenopathy. Supple, full range of motion without nuchal rigidity, or vertebral point tenderness. Chest/axilla: Normal chest wall appearance and motion. Nontender with no deformity. No lesions are appreciated. Cardiovascular: Regular rate and rhythm with a normal S1 and S2. No gallops, murmurs, or rubs. Normal PMI, no JVD. No pulse deficits. Respiratory: Lungs have equal breath sounds bilaterally, clear to auscultation and percussion. No rales, rhonchi or wheezes noted. No increased work of breathing, no retractions or nasal flaring. Abdomen/GI: Soft, with normal bowel sounds. No distension or tympany. No guarding or rebound. No evidence of tenderness throughout. Back: No spinal tenderness. No costovertebral tenderness. Skin: Warm, dry with normal turgor. Normal color with no rashes, no lesions, and no evidence of cellulitis. MS/ Extremity: Pulses equal, no cyanosis. Neurovascular intact. Full, normal range of motion. Feet are cold and wet with wet socks. Patient was provided dry socks Neuro: Awake and alert, GCS 15, oriented to person, place, time, and situation. Cranial nerves II-XII grossly intact. Motor strength 5/5 in all extremities. Sensory grossly intact. Psych: Awake, alert, with orientation to person, place and time. Behavior, mood, and affect are within normal limits Vital Signs: 06:49 BP 142 / 96; Pulse 88; Resp 17; Temp 98.5; Pulse Ox 100% on R/A; Weight 80.29 kg; al5 Height 5 ft. 5 in. ; 07:28 BP 166 / 99; Pulse 79; Resp 16; Pulse Ox 100% ; bp 06:49 Body Mass Index 29.45 (80.29 kg, 165.1 cm) al5 [place] Coma Score: 06:54 Eye Response: spontaneous(4). Motor Response: obeys commands(6). Verbal Response: sp4 oriented(5). Total: 15. MDM: 06:49 Medical Screening Exam initiated sp4 06:54 Differential Diagnosis Hypothermia, macerated skin, exposure to elements. Data sp4 reviewed: vital signs, nurses notes, EMS record. ED course: Patient overall has stable vital signs. Patient is not hypothermic. Patient is stable for discharge from the ER.. 03/28 06:49 Order name: Agustina. Order: provide yellow socks; Complete Time: 06:55 sp4 Administered Medications: No medications were administered Disposition Summary: 03/28/24 06:59 Discharge Ordered Notes: Location: Home sp4 Problem: new sp4 Symptoms: have improved sp4 Condition: Stable sp4 Diagnosis - Cold exposure, Bilateral cold feet , homelessness sp4 Followup: sp4 - With: Private Physician - When: As needed - Reason: Discharge Instructions: - Discharge Summary Sheet sp4 - Medical Screening Exam sp4 Signatures: Tristian Honeycutt MD MD sp4 Peggy Arechiga RN RN al5
--- NOTE | 2024-03-28 07:00 | ER ---
Nurse's Notes [facility] Name: Hernandez Burr Age: 48 yrs Sex: Male : 1975 Arrival Date: 03/28/2024 Time: 06:46 Bed 7 Private MD: Diagnosis: Cold exposure, Bilateral cold feet , homelessness Presentation: 03/28 06:49 Chief complaint: Patient states: patient homeless, c/o cold feet and hands due to being al5 exposed to the cold all night. Coronavirus screen: At this time, the client does not indicate any symptoms associated with coronavirus-19. Ebola Screen: No symptoms or risks identified at this time. Initial Sepsis Screen: Does the patient meet any 2 criteria? No. Patient's initial sepsis screen is negative. Does the patient have a suspected source of infection? No. Patient's initial sepsis screen is negative. Risk Assessment: Do you want to hurt yourself or someone else? Patient reports no desire to harm self or others. Onset of symptoms was March 28, 2024. 06:49 Method Of Arrival: EMS: [facility] al5 06:49 Acuity: KEERTHI 4 al5 Triage Assessment: 06:50 General: Appears in no apparent distress. Behavior is calm, cooperative. Pain: al5 Complains of pain in right hand, left hand, right foot and left foot Quality of pain is described as cold. EENT: No signs and/or symptoms were reported regarding the EENT system. Neuro: Level of Consciousness is awake, alert, obeys commands, Oriented to person, place, time, situation. Cardiovascular: Capillary refill < 3 seconds skin cold and dry except for his feet. socks were soaking wet. Respiratory: Airway is patent Respiratory effort is even, unlabored, Respiratory pattern is regular, symmetrical. GI: No signs and/or symptoms were reported involving the gastrointestinal system. : No signs and/or symptoms were reported regarding the genitourinary system. Derm: Skin is intact, is healthy with good turgor, Skin is dry, feet were covered in soaking socks. no ulceration or discoloration to patient feet Skin is normal, Skin temperature is cold. Musculoskeletal: No signs and/or symptoms reported regarding the musculoskeletal system. Historical: - Allergies: 06:50 PENICILLINS; al5 - PMHx: 06:50 None; al5 - PSHx: 06:50 hand surgery; al5 - Immunization history:: Adult Immunizations up to date. - Infectious Disease History:: Denies. - Social history:: Smoking status: Patient reports the use of cigarette tobacco products, denies chronic smoking, but will smoke occasionally. - Family history:: not pertinent. Screenin:54 [facility] ED Fall Risk Assessment (Adult) History of falling in the last 3 months, al5 including since admission No falls in past 3 months (0 pts) Confusion or Disorientation No (0 pts) Intoxicated or Sedated No (0 pts) Impaired Gait No (0 pts) Mobility Assist Device Used No (0 pt) Altered Elimination No (0 pt) Score/Fall Risk Level 0 - 2 = Low Risk Oriented to surroundings, Maintained a safe environment, Hourly rounding (assess needs \T\ fall precautionary measures) done. Abuse screen: Denies threats or abuse. Denies injuries from another. Nutritional screening: No deficits noted. Tuberculosis screening: No symptoms or risk factors identified. Assessment: 06:54 Reassessment: see triage assessment. al5 Vital Signs: 06:49 BP 142 / 96; Pulse 88; Resp 17; Temp 98.5; Pulse Ox 100% on R/A; Weight 80.29 kg; al5 Height 5 ft. 5 in. ; 07:28 BP 166 / 99; Pulse 79; Resp 16; Pulse Ox 100% ; bp 06:49 Body Mass Index 29.45 (80.29 kg, 165.1 cm) al5 [place] Coma Score: 06:54 Eye Response: spontaneous(4). Motor Response: obeys commands(6). Verbal Response: sp4 oriented(5). Total: 15. ED Course: 06:48 Patient arrived in ED. al5 06:49 Tristian Honeycutt MD is Attending Physician. sp4 06:50 Triage completed. al5 06:53 Arm band placed on right wrist. Patient placed in the treatment room, on a stretcher. al5 06:54 Patient has correct armband on for positive identification. Bed in low position. Call al5 light in reach. Side rails up X 1. Warm blanket given. patient given new dry socks. 06:55 Peggy Arechiga RN is Primary Nurse. al5 06:55 No provider procedures requiring assistance completed. al5 07:29 Patient did not have IV access during this emergency room visit. bp Administered Medications: No medications were administered Medication: 06:54 VIS not applicable for this client. al5 Outcome: 06:59 Discharge ordered by MD. vera 07:29 Discharged to home ambulatory, bp 07:29 Condition: stable 07:29 Discharge instructions given to patient, Instructed on discharge instructions, follow up and referral plans. Demonstrated understanding of instructions, follow-up care, 07:37 Patient left the ED. bp Signatures: Robert Garcia, RN RN Tristian Terrazas MD MD sp4 Peggy Arechiga RN RN al5
[2024-03-28 07:43] VITALS: BP 166/99; TEMP 98.5; O2SAT 100
== END 2024-03-28 07:37 | disposition home or self-care (01) ==
LOC: ER 06:46
DX: R20.8 Other disturbances of skin sensation (principal); X31.XXXA Exposure to excessive natural cold, initial encounter; Z59.00 Homelessness unspecified
CPT/HCPCS: 99283